=== PATIENT | male | born 1935 | race Caucasian/White ===

== ENCOUNTER 2016-12-01 06:30 | Day surgery (SDC) | payer MEDICARE, BC ==
[~2016-12-01 06:30] MED LIST: Dextrose 5%-0.45% NaCl 1,000 ML IV SCH; Midazolam 1 MG/ML 2 ML SDV ONE; Sodium Chloride 0.9% 10 ML Syringe FLUSH PRN; fentaNYL 100 MCG/2 ML SDV ONE
[2016-12-01] MEDS ORDERED: fentaNYL 100 MCG/2 ML SDV IV ONE ×3 (07:36→16:45)
[2016-12-01] MEDS ORDERED: Midazolam 1 MG/ML 2 ML SDV IV ONE ×4 (07:38→16:45)
--- NOTE | 2016-12-01 09:30 | OR ---
DATE: 12/01/2016 PROCEDURE: Total colonoscopy, NBI, and multiple cold snare polypectomies. INSTRUMENT USED: CF-H180AL Olympus video colonoscope. PREMEDICATIONS: Fentanyl 100 mcg intravenous, Versed 2.5 mg intravenous. Nasal O2 cannula. The procedure was done under pulse oximetry, BP recording, and stockroom helper. INDICATION: The patient with high-risk family history for colon cancer. Colonoscopic examination is done for detection of any polypoid lesions and removal, endoscopic hemostasis therapy if needed. DESCRIPTION OF PROCEDURE: Initial rectal exam was unremarkable. Rigid anoscopy was normal. The colonoscope was passed with ease. Scattered diverticula were noted in the distal colon. The scope was passed with ease up to the ileocecal area, photographs were taken of the cecum showing diminutive, benign-appearing polyp, NBI views were obtained, photographs were taken, cold snare polypectomy was done. No bleeding was noted from any of the visualized areas at the commencement of the examination. No stricture. No vascular ectasia. No large isolated ulcerations seen. No evidence of diffuse inflammatory bowel disease in the form of friability, contact bleeding, or ulcerations. Multiple diminutive polyps were noted, 2 in the proximal ascending colon, and 2 in the hepatic flexure area, cold snare polypectomies were done, the tissues were retrieved and sent for histopathology. Probing the proximal sides of flexures folds and removal of the fecal material, the scope was withdrawn. No bleeding was noted from any of the visualized areas at the completion of examination. IMPRESSION: 1. Diverticulosis. 2. Multiple diminutive polyps. The patient tolerated the procedure well. [facility] /[id number]
[2016-12-01 10:47] VITALS: BP 140/60
== END 2016-12-01 10:15 | disposition home or self-care (01) ==
LOC: DL.ENDO 06:30
PROVIDERS: ATTEND Internal Medicine Gastroenterology
DX: Z12.11 Encounter for screening for malignant neoplasm of colon (principal); D12.0 Benign neoplasm of cecum; D12.3 Benign neoplasm of transverse colon; K57.30 Diverticulosis of large intestine without perforation or abscess without bleeding; I10 Essential (primary) hypertension; E78.00 Pure hypercholesterolemia, unspecified; J44.9 Chronic obstructive pulmonary disease, unspecified; Z88.0 Allergy status to penicillin; Z88.8 Allergy status to other drugs, medicaments and biological substances; Z95.5 Presence of coronary angioplasty implant and graft; Z98.890 Other specified postprocedural states; Z90.49 Acquired absence of other specified parts of digestive tract; Z87.891 Personal history of nicotine dependence
CPT/HCPCS: 45385; J2250; J3010; J7042; 88305

== ENCOUNTER 2019-06-04 15:30 | Emergency (ER) | payer BC, MEDICARE ==
--- NOTE | 2019-06-04 16:24 | EDM.PDOC ---
ED HPI GENERAL MEDICAL PROBLEM - General Chief Complaint: General Stated Complaint: DIZZY Time Seen by Provider: 06/04/19 16:54 Source of Information: Reports: Patient, RN, RN Notes Reviewed History Limitations: Reports: No Limitations - History of Present Illness INITIAL COMMENTS - FREE TEXT/NARRATIVE: Patient is an 83-year-old male who presents to ER with complaints of dizziness. Patient reports that he woke up this morning feeling dizzy as if he was going to fall head forward. He reports dizziness resolved on its own. About 3 hours ago, the patient reports getting up from the chair to go get coffee and he felt dizzy with the room spinning so his brought him in. He denies any head injury, trauma or fall. He reports dizziness if he gets out of a sitting position to a standing position faster. He denies any nausea/vomiting, abdominal pain, diarrhea, constipation, earache, shortness of breath, chest pain , and palpitations. He denies any history of diabetes. Onset: Today Quality: Reports: Ache Severity: Mild Improves with: Reports: None Worsens with: Reports: None Associated Symptoms: Reports: No Other Symptoms - Related Data Allergies Allergy/AdvReac Type Severity Reaction Status Date / Time atorvastatin calcium Allergy Rash Verified 06/04/19 15:55 [From Lipitor] Penicillins Allergy Rash Verified 06/04/19 15:55 Home Meds: Home Meds Aspirin [Mitchell Chewable Aspirin] 81 mg PO DAILY 04/21/14 [History] Cholecalciferol (Vitamin D3) [Vitamin D-3] 2,000 units PO DAILY 04/21/14 [ History] Metoprolol Succinate 50 mg PO BEDTIME 04/21/14 [History] Simvastatin 40 mg PO BEDTIME 04/21/14 [History] Lisinopril 1 tab PO DAILY 11/30/16 [History] Lutein/Minerals/Vit A,C & E [Ocuvite] 1 tab PO DAILY 12/01/16 [History] Past Medical History HEENT History: Reports: Macular Degeneration Cardiovascular History: Reports: Angina, Arrhythmia, CAD, High Cholesterol, Hypertension, SC, Other (See Below) Other Cardiovascular History: 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 HX OF TUBULAR ADENOMA Genitourinary History: Reports: None Musculoskeletal History: Reports: Fracture, Other (See Below) Other Musculoskeletal History: HX OF FRACTURE CALCANEUS-CLOSED. HX OF BURSITIS , RIGHT HIP TENDONITIS RT THIGH MUSCLE Neurological History: Reports: None Psychiatric History: Reports: None Endocrine/Metabolic History: Reports: None Hematologic History: Reports: None Immunologic History: Reports: None Oncologic (Cancer) History: Reports: None Dermatologic History: Reports: None - Infectious Disease History Infectious Disease History: Reports: None, Measles - Past Surgical History Head Surgeries/Procedures: Reports: None HEENT Surgical History: Reports: Cataract Surgery, Other (See Below) Other HEENT Surgeries/Procedures: FORIEGN BODY REMOVED RIGHT EYE. CATARACT REMOVAL WITH LENS PLACEMENT LEFT EYE Cardiovascular Surgical History: Reports: Coronary Artery Stent, Other (See Below) Other Cardiovascular Surgeries/Procedures: CORONARY ANGIOPLASTY Respiratory Surgical History: Reports: None GI Surgical History: Reports: Appendectomy, Colonoscopy, Polypectomy, Other ( See Below) Other GI Surgeries/Procedures: HX OF THROMBOSED EXTERNAL HEMORRHOIDS, I & D OF HEMORRHOIDS Male Surgical History: Reports: None Endocrine Surgical History: Reports: None Neurological Surgical History: Reports: None Musculoskeletal Surgical History: Reports: None Oncologic Surgical History: Reports: None Dermatological Surgical History: Reports: None Social & Family History - Tobacco Use Smoking Status *Q: Former Smoker Used Tobacco, but Quit: No Month/Year Tobacco Last Used: 2011 - Caffeine Use Caffeine Use: Reports: Coffee Other Caffeine Use: AVERAGE OF 12 CUPS DAILY - Recreational Drug Use Recreational Drug Use: No - Living Situation & Occupation Living situation: Reports: Occupation: Retired ED ROS GENERAL - Review of Systems Review Of Systems: Comprehensive ROS is negative, except as noted in HPI. ED EXAM, GENERAL - Physical Exam Exam: See Below Exam Limited By: No Limitations General Appearance: Alert, WD/WN, No Apparent Distress Eye Exam: Bilateral Eye: EOMI, Normal Inspection, PERRL Ears: Normal External Exam, Normal Canal, Hearing Grossly Normal, Normal TMs Nose: Normal Inspection, Normal Mucosa, No Blood Throat/Mouth: Normal Inspection, Normal Lips, Normal Teeth, Normal Gums, Normal Oropharynx, Normal Voice, No Airway Compromise Head: Atraumatic, Normocephalic Neck: Normal Inspection, Supple, Non-Tender, Full Range of Motion Respiratory/Chest: No Respiratory Distress, Lungs Clear, Normal Breath Sounds, No Accessory Muscle Use, Chest Non-Tender Cardiovascular: Normal Peripheral Pulses, No Edema, No Gallop, No JVD, No Murmur , No Rub, Bradycardia GI/Abdominal: Normal Bowel Sounds, Soft, Non-Tender, No Organomegaly, No Distention, No Abnormal Bruit, No Mass (Male) Exam: Deferred Rectal (Males) Exam: Deferred Back Exam: Normal Inspection, Full Range of Motion, NT Extremities: Normal Inspection, Normal Range of Motion, Non-Tender, Normal Capillary Refill, No Pedal Edema Neurological: Alert, Oriented, CN II-XII Intact, Normal Cognition, Normal Gait, Normal Reflexes, No Motor/Sensory Deficits Psychiatric: Normal Affect, Normal Mood Skin Exam: Warm, Dry, Intact, Normal Color, No Rash Lymphatic: No Adenopathy EKG INTERPRETATION EKG Date: 06/04/19 Time: 16:16 Rhythm: Other (60) Rate (Beats/Min): 60 [place]: Normal P-Wave: Present QRS: LBBB ST-T: Normal QT: Normal Course - Vital Signs Last Recorded V/S: Last Vital Signs Temp 97.7 F 06/04/19 15:46 Pulse 57 L 06/04/19 17:44 Resp 18 06/04/19 15:46 BP 175/59 H 06/04/19 17:44 Pulse Ox 94 L 06/04/19 17:44 Orthostatic Blood Pressure [ 148/65 Standing] Orthostatic Blood Pressure [ 158/64 Supine] - Orders/Labs/Meds Orders: Active Orders 24 hr Category Date Time Status Orthostatic Vital Signs [RC] ASDIRECTED Care 06/04/19 18:43 Active Labs: Laboratory Tests 06/04/19 06/04/19 06/04/19 Range/Units 16:07 16:07 17:03 WBC 7.1 (5.0-10.0) 10^3/uL RBC 4.66 (4.6-6.2) 10^6/uL Hgb 14.9 (14.0-18.0) g/dL Hct 44.5 (40.0-54.0) % MCV 95.5 (80-100) fL MCH 32.0 (27.0-34.0) pg MCHC 33.5 (33.0-35.0) g/dL Plt Count 277 (150-450) 10^3/uL Neut % (Auto) 57.3 (42.2-75.2) % Lymph % (Auto) 27.3 (20.5-50.1) % [place] % (Auto) 12.7 H (2-8) % Eos % (Auto) 2.4 (1.0-3.0) % Baso % (Auto) 0.3 (0.0-1.0) % Sodium 138 (135-145) mmol/L Potassium 3.7 (3.6-5.0) mmol/L Chloride 105 (101-111) mmol/L Carbon Dioxide 26.0 (21.0-31.0) mmol/L Anion Gap 10.7 BUN 12 (7-18) mg/dL Creatinine 0.9 (0.6-1.3) mg/dL Est Cr Clr Drug Dosing 62.28 mL/min Estimated GFR (MDRD) > 60 BUN/Creatinine Ratio 13.33 Glucose 105 (74-105) mg/dL Calcium 9.3 (8.4-10.2) mg/dl Total Bilirubin 0.8 (0.2-1.0) mg/dL AST 22 (10-42) IU/L ALT 20 (10-60) IU/L Alkaline Phosphatase 50 (42-121) IU/L Total Protein 6.8 (6.7-8.2) g/dl Albumin 4.0 (3.2-5.5) g/dl Globulin 2.8 Albumin/Globulin Ratio 1.43 Urine Color Yellow (YELLOW) Urine Appearance Clear (CLEAR) Urine pH 7.5 (5.0-9.0) Ur Specific [place] 1.015 (1.005-1.030) Urine Protein Negative (NEGATIVE) Urine Glucose (UA) Negative (NEGATIVE) Urine Ketones Negative (NEGATIVE) Urine Occult Blood Negative (NEGATIVE) Urine Nitrite Negative (NEGATIVE) Urine Bilirubin Negative (NEGATIVE) Urine Urobilinogen 0.2 (0.2-1.0) mg/dL Ur Leukocyte Esterase Negative (NEGATIVE) Meds: Medications Discontinued Medications Generic Name Dose Route Start Last Admin Trade Name Freq PRN Reason Stop Dose Admin Iopamidol 100 ml 06/04/19 16:58 06/04/19 18:56 Isovue-300 (61%) IVPUSH 06/04/19 16:59 Not Given ONETIME ONE - Re-Assessments/Exams Free Text/Narrative Re-Assessment/Exam: 06/04/19 19:08 Reviewed labs results with patient. Brian-Hallpike and Cely maneuver performed by Dr. Linton with nystagmus noted on the right. Patient is also symptomatic with movement. HR in the high 50's to 60's. Metoprolol held for 2 days. Follow up in clinic in 2 days. Patient verbalized understanding. Departure - Departure Time of Disposition: 19:05 Disposition: Home, Self-Care 01 Condition: Good Clinical Impression: Dizziness, Bradycardia - Discharge Information Instructions: Dizziness, [id number] Referrals: Jennifer Latham NP [Primary Care Provider] - Forms: ED Department Discharge Additional Instructions: Hold Metoprolol for 2 days. Follow up in the clinic on 06/06/19. Push fluids. Rest. Sepsis Event Note - Evaluation Sepsis Screening Result: No Definite Risk - Focused Exam Date Exam was Performed: 06/05/19 Time Exam was Performed: 08:47 - My Orders Last 24 Hours: My Active Orders 06/04/19 18:43 Orthostatic Vital Signs [RC] ASDIRECTED - Assessment/Plan Last 24 Hours: My Active Orders 06/04/19 18:43 Orthostatic Vital Signs [RC] ASDIRECTED
[2019-06-04] MEDS ORDERED: Iopamidol 612 MG/ML 100 ML Bottle IVPUSH ONE (16:58)
[2019-06-04 17:33] LABS: ANION GAP 10.7; CHLORIDE,CL 105 mmol/L (101-111); SODIUM,NA 138 mmol/L (135-145)
[2019-06-04 17:45] VITALS: BP 175/59; PULSE 57
== END 2019-06-04 19:29 | disposition home or self-care (01) ==
LOC: DL.ED 15:30
DX: R00.1 Bradycardia, unspecified (principal); R42 Dizziness and giddiness; I25.2 Old myocardial infarction; I25.10 Atherosclerotic heart disease of native coronary artery without angina pectoris; E78.00 Pure hypercholesterolemia, unspecified; J44.9 Chronic obstructive pulmonary disease, unspecified; Z88.8 Allergy status to other drugs, medicaments and biological substances; Z88.0 Allergy status to penicillin; Z79.82 Long term (current) use of aspirin; Z79.899 Other long term (current) drug therapy; Z87.891 Personal history of nicotine dependence
CPT/HCPCS: 36415; 80053; 81003; 85025; 93010; 99284

== ENCOUNTER 2019-11-30 01:36 | Inpatient (IN) | payer MEDICARE, OTHER ==
--- NOTE | 2019-11-30 02:42 | EDM.PDOC ---
<Jennifer Clark R - Last Filed: 11/30/19 05:00> ED HPI GENERAL MEDICAL PROBLEM - General Chief Complaint: Respiratory Problem Stated Complaint: SOB Time Seen by Provider: 11/30/19 02:10 Source of Information: Reports: Patient History Limitations: Reports: No Limitations - History of Present Illness INITIAL COMMENTS - FREE TEXT/NARRATIVE: Patient is a 84 year old male with a PMH significant for COPD, CAD s/p stent placement, alcohol abuse who presents with complaints of SOB. He was seen in clinic 3 days ago and was diagnosed with Bronchitis and was prescribed Azithromycin and Prednisone. He was also tested for COVID-19 which came back positive 11/29/2019. He states he feels more short of breath today. Denies fever, chills, nausea, vomiting, chest pain, headaches, cough, congestion, diarrhea. He states he has decreased appetite but he's been drinking plenty of fluids as recommended. Onset Date: 11/27/19 Duration: Getting Worse Severity: Mild Associated Symptoms: Reports: Loss of Appetite, Malaise, Shortness of Breath. 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 Cough medicine) - Related Data Allergies Allergy/AdvReac Type Severity Reaction Status Date / Time atorvastatin calcium Allergy Rash Verified 06/04/19 15:55 [From Lipitor] Penicillins Allergy Rash Verified 06/04/19 15:55 Home Meds: Home Meds Aspirin [Mitchell Chewable Aspirin] 81 mg PO DAILY 04/21/14 [History] Cholecalciferol (Vitamin D3) [Vitamin D-3] 2,000 units PO DAILY 04/21/14 [History] Metoprolol Succinate 50 mg PO BEDTIME 04/21/14 [History] Simvastatin 40 mg PO BEDTIME 04/21/14 [History] Lisinopril 1 tab PO DAILY 11/30/16 [History] Lutein/Minerals/Vit A,C & E [Ocuvite] 1 tab PO DAILY 12/01/16 [History] Past Medical History HEENT History: Reports: Hard of Hearing, Macular Degeneration Cardiovascular History: Reports: Angina, Arrhythmia, CAD, High Cholesterol, Hypertension, [place], Other (See Below) Other Cardiovascular History: 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 HX OF TUBULAR ADENOMA Genitourinary History: Reports: None Musculoskeletal History: Reports: Fracture, Other (See Below) Other Musculoskeletal History: HX OF FRACTURE CALCANEUS-CLOSED. HX OF BURSITIS, RIGHT HIP TENDONITIS RT THIGH MUSCLE Neurological History: Reports: None Psychiatric History: Reports: None Endocrine/Metabolic History: Reports: None Hematologic History: Reports: None Immunologic History: Reports: None Oncologic (Cancer) History: Reports: None Dermatologic History: Reports: None - Infectious Disease History Infectious Disease History: Reports: None, Measles - Past Surgical History Head Surgeries/Procedures: Reports: None HEENT Surgical History: Reports: Cataract Surgery, Other (See Below) Other HEENT Surgeries/Procedures: FORIEGN BODY REMOVED RIGHT EYE. CATARACT REMOVAL WITH LENS PLACEMENT LEFT EYE Cardiovascular Surgical History: Reports: Coronary Artery Stent, Other (See Below) Other Cardiovascular Surgeries/Procedures: CORONARY ANGIOPLASTY Respiratory Surgical History: Reports: None GI Surgical History: Reports: Appendectomy, Colonoscopy, Polypectomy, Other (See Below) Other GI Surgeries/Procedures: HX OF THROMBOSED EXTERNAL HEMORRHOIDS, I & D OF HEMORRHOIDS Male Surgical History: Reports: None Endocrine Surgical History: Reports: None Neurological Surgical History: Reports: None Musculoskeletal Surgical History: Reports: None Oncologic Surgical History: Reports: None Dermatological Surgical History: Reports: None Social & Family History - Tobacco Use Smoking Status *Q: Former Smoker Used Tobacco, but Quit: No Second Hand Smoke Exposure: No - Caffeine Use Caffeine Use: Reports: Coffee Other Caffeine Use: AVERAGE OF 12 CUPS DAILY - Recreational Drug Use Recreational Drug Use: No - Living Situation & Occupation Living situation: Reports: Occupation: Retired ED ROS GENERAL - Review of Systems Review Of Systems: Comprehensive ROS is negative, except as noted in HPI. ED EXAM, GENERAL - Physical Exam Exam Limited By: No Limitations General Appearance: Alert, WD/WN, No Apparent Distress Ears: Normal External Exam, Normal Canal, Hearing Grossly Normal, Normal TMs Ear Exam: Bilateral Ear: Auricle Normal, Canal Normal, TM normal Nose: Normal Inspection, Normal Mucosa, No Blood Throat/Mouth: Normal Inspection, Normal Lips, Normal Teeth, Normal Gums, Normal Oropharynx, Normal Voice, No Airway Compromise Head: Atraumatic, Normocephalic Neck: Normal Inspection, Supple, Non-Tender, Full Range of Motion Respiratory/Chest: No Respiratory Distress, No Accessory Muscle Use, Decreased Breath Sounds, Wheezing (mild expiratory wheezes) Cardiovascular: Normal Peripheral Pulses, Regular Rate, Rhythm, No Edema, No Gallop, No JVD, No Murmur, No Rub GI/Abdominal: Normal Bowel Sounds, Soft, Non-Tender, No Organomegaly, No Distention, No Abnormal Bruit, No Mass (Male) Exam: Deferred Rectal (Males) Exam: Deferred Back Exam: Normal Inspection, Full Range of Motion, NT Extremities: Normal Inspection, Normal Range of Motion, Non-Tender, Normal Capillary Refill, No Pedal Edema Neurological: Alert, Oriented, CN II-XII Intact, Normal Cognition, Normal Gait, Normal Reflexes, No Motor/Sensory Deficits Psychiatric: Normal Affect, Normal Mood Skin Exam: Warm, Dry, Intact, Normal Color, No Rash Lymphatic: No Adenopathy Departure - Departure Time of Disposition: 05:00 Disposition: Admitted As Inpatient 68 Condition: Fair Clinical Impression: Hypoxemia, COPD with exacerbation, COVID-19 - Discharge Information *PRESCRIPTION DRUG MONITORING PROGRAM REVIEWED*: Not Applicable *COPY OF PRESCRIPTION DRUG MONITORING REPORT IN PATIENT JASSON: Not Applicable Forms: ED Department Discharge Sepsis Event Note (ED) - Evaluation Sepsis Screening Result: No Definite Risk <Bree Soria - Last Filed: 11/30/19 05:05> ED EXAM, GENERAL - Physical Exam Exam: See Below Course - Vital Signs Last Recorded V/S: Last Vital Signs Temp 98.0 F 11/30/19 01:50 Pulse 69 11/30/19 01:50 Resp 20 11/30/19 01:50 BP 151/60 H 11/30/19 01:50 Pulse Ox 92 L 11/30/19 01:50 - Orders/Labs/Meds Orders: Active Orders 24 hr Category Date Time Status Admission Diagnosis [ADT] Stat ADT 11/30/19 04:59 Ordered Admission Status [Patient Status] [ADT] Routine ADT 11/30/19 04:59 Active EKG Documentation Completion [RC] STAT Care 11/30/19 01:56 Active D-DIMER [REF] Stat Lab 11/30/19 02:26 Received Labs: Laboratory Tests 11/30/19 11/30/19 11/30/19 Range/Units 02:00 02:00 02:00 WBC 7.4 (5.0-10.0) 10^3/uL RBC 4.79 (4.6-6.2) 10^6/uL Hgb 15.2 (14.0-18.0) g/dL Hct 44.9 (40.0-54.0) % MCV 93.7 (80-100) fL MCH 31.7 (27.0-34.0) pg MCHC 33.9 (33.0-35.0) g/dL Plt Count 129 L D (150-450) 10^3/uL Neut % (Auto) 73.9 (42.2-75.2) % Lymph % (Auto) 17.3 L (20.5-50.1) % [place] % (Auto) 8.7 H (2-8) % Eos % (Auto) 0.0 L (1.0-3.0) % Baso % (Auto) 0.1 (0.0-1.0) % Sodium 140 (136-145) mmol/L Potassium 3.9 (3.5-5.1) mmol/L Chloride 104 (98-107) mmol/L Carbon Dioxide 29 (21-32) mmol/L Anion Gap 10.9 (7-13) mEq/L BUN 25 H (7-18) mg/dL Creatinine 1.10 (0.70-1.30) mg/dL Est Cr Clr Drug Dosing 44.51 mL/min Estimated GFR (MDRD) > 60 BUN/Creatinine Ratio 22.7 (No establ ref range) Glucose 125 H (74-99) mg/dL Lactic Acid 1.7 (0.4-2.0) mmol/L Calcium 8.1 L (8.5-10.1) mg/dL Total Bilirubin 0.5 (0.2-1.0) mg/dL AST 38 H (15-37) U/L ALT 31 (16-63) U/L Alkaline Phosphatase 46 (46-116) U/L Lactate Dehydrogenase 325 H (85-227) U/L Troponin I < 0.017 (0.000-0.056) ng/mL C-Reactive Protein 1.9 H (0.0-0.9) mg/dL B-Natriuretic Peptide 88 (0-100) pg/ml Total Protein 6.3 L (6.4-8.2) g/dL Albumin 2.6 L (3.4-5.0) g/dL Globulin 3.7 Albumin/Globulin Ratio 0.70 Ethyl Alcohol (0) mg/dL 11/30/19 Range/Units 02:26 WBC (5.0-10.0) 10^3/uL RBC (4.6-6.2) 10^6/uL Hgb (14.0-18.0) g/dL Hct (40.0-54.0) % MCV (80-100) fL MCH (27.0-34.0) pg MCHC (33.0-35.0) g/dL Plt Count (150-450) 10^3/uL Neut % (Auto) (42.2-75.2) % Lymph % (Auto) (20.5-50.1) % [place] % (Auto) (2-8) % Eos % (Auto) (1.0-3.0) % Baso % (Auto) (0.0-1.0) % Sodium (136-145) mmol/L Potassium (3.5-5.1) mmol/L Chloride (98-107) mmol/L Carbon Dioxide (21-32) mmol/L Anion Gap (7-13) mEq/L BUN (7-18) mg/dL Creatinine (0.70-1.30) mg/dL Est Cr Clr Drug Dosing mL/min Estimated GFR (MDRD) BUN/Creatinine Ratio (No establ ref range) Glucose (74-99) mg/dL Lactic Acid (0.4-2.0) mmol/L Calcium (8.5-10.1) mg/dL Total Bilirubin (0.2-1.0) mg/dL AST (15-37) U/L ALT (16-63) U/L Alkaline Phosphatase (46-116) U/L Lactate Dehydrogenase (85-227) U/L Troponin I (0.000-0.056) ng/mL C-Reactive Protein (0.0-0.9) mg/dL B-Natriuretic Peptide (0-100) pg/ml Total Protein (6.4-8.2) g/dL Albumin (3.4-5.0) g/dL Globulin Albumin/Globulin Ratio Ethyl Alcohol < 3 (0) mg/dL - Radiology Interpretation Free Text/Narrative:: Chest CT wo contrast: PROCEDURE INFORMATION: Exam: CT Chest Without Contrast Exam date and time: 11/30/2019 3:29 AM Age: 84 years old Clinical indication: Other: Covid +, SOB, sats 88% ra TECHNIQUE: Imaging protocol: Computed tomography of the chest without contrast. Radiation optimization: All CT scans at this facility use at least one of these dose optimization techniques: automated exposure control; mA and/or kV adjustment per patient size (includes targeted exams where dose is matched to clinical indication); or iterative reconstruction. COMPARISON: CR Chest 1V Frontal 10/27/2015 9:51 PM FINDINGS: Limitations: Evaluation of the vasculature, krista, and mediastinal structures is limited due to the lack of IV contrast. Lungs: There are moderate centrilobular emphysematous changes in the lungs most severely in the upper lobes. There are ground-glass opacities throughout both lungs, most pronounced in the lingula, lateral inferior right upper lobe and the right lower. This may represent an atypical pneumonia or pulmonary fibrosis. Juxtapleural lines are noted in the right lower lobe probably representing pulmonary fibrosis. There is 2 x 1 cm nodular focus in the inferior right middle lobe contiguous with the pleura which may represent a scar. Cannot exclude a true pulmonary nodule. There is a 6 x 4 mm posterior right upper lobe pulmonary nodule (axial image 20). The trachea and central bronchi are unremarkable. Pleura: No pleural effusion. No pneumothorax. Heart: Heart size is normal. There are heavy coronary artery calcifications. There is no pericardial effusion. Krista and mediastinum: There is no obvious mass or adenopathy. There is a small hiatal hernia. Thoracic aorta/vascular: No thoracic aortic aneurysm. Imaged upper abdomen: There are 3 hypodense lesions in the right lobe of the liver, largest measuring 3.2 x 2.4 cm. These are difficult to characterize on a noncontrast study but are suspicious for cysts. Recommend nonemergent ultrasound correlation. There is severe left hydronephrosis, less likely a large parapelvic cyst. There is associated cortical thinning. There is also an exophytic probable cyst arising from the anteromedial left upper pole measuring 3.2 x 2.7 cm. There coarse calcifications in the left renal hilar region which may be atherosclerotic arterial in nature. Musculoskeletal system: There is an old mild compression fracture of the superior endplate T3. There are degenerative changes of the cervical and thoracic spine. Chest/body wall soft tissues: Unremarkable Thyroid: Unremarkable IMPRESSION: 1. Ground-glass opacities throughout both lungs as discussed above which may represent an atypical pneumonia or pulmonary fibrosis. 2. Moderate centrilobular emphysema. 3. 2 x 1 cm scar versus nodule in the anterior inferior right middle lobe. 4. 6 x 4 mm posterior right upper lobe pulmonary nodule. 5. For both low risk and high risk patients, consider CT at 3 months, PET/CT or biopsy. (Toro et al., Fleischner Society, 2017) 6. Imaging features can be seen with COVID-19 pneumonia, though are nonspecific and can occur with a variety of infectious and noninfectious processes. REFERENCES: Francisco Javier Canales et al., Radiological Society of [place] Expert Consensus Statement on Reporting Chest CT Findings Related to COVID-19. Endorsed by the Society of Thoracic Ra diology, the [employer], and RSNA. Published July 12, 2019. Thank you for allowing us to participate in the care of your patient. Dictated and Authenticated by: Logan Perdomo MD 11/30/2019 4:51 AM Central Time ([place] & [place]) See rad report - Re-Assessments/Exams Free Text/Narrative Re-Assessment/Exam: 11/30/19 05:04 I saw and evaluated the patient. Discussed with resident and agree with residents findings and plan as documented in the residents note. 11/30/19 05:04 Discussed patient case with Dr. John who agreed to accept the patient for inpatient admission. Sepsis Event Note (ED) - Focused Exam Vital Signs: Vital Signs Temp Pulse Resp BP Pulse Ox 11/30/19 01:50 98.0 F 69 20 151/60 H 92 L - My Orders Last 24 Hours: My Active Orders 11/30/19 01:56 EKG Documentation Completion [RC] STAT 11/30/19 02:26 D-DIMER [REF] Stat 11/30/19 04:59 Admission Diagnosis [ADT] Stat Admission Status [Patient Status] [ADT] Routine - Assessment/Plan Last 24 Hours: My Active Orders 11/30/19 01:56 EKG Documentation Completion [RC] STAT 11/30/19 02:26 D-DIMER [REF] Stat 11/30/19 04:59 Admission Diagnosis [ADT] Stat Admission Status [Patient Status] [ADT] Routine
[2019-11-30 02:55] LABS: ANION GAP 10.9 mEq/L (7-13); CHLORIDE,CL 104 mmol/L (98-107); SODIUM,NA 140 mmol/L (136-145)
--- NOTE | 2019-11-30 04:52 | CT ---
PROCEDURE INFORMATION: Exam: CT Chest Without Contrast Exam date and time: 11/30/2019 3:29 AM Age: 84 years old Clinical indication: Other: Covid +, SOB, sats 88% ra TECHNIQUE: Imaging protocol: Computed tomography of the chest without contrast. Radiation optimization: All CT scans at this facility use at least one of these dose optimization techniques: automated exposure control; mA and/or kV adjustment per patient size (includes targeted exams where dose is matched to clinical indication); or iterative reconstruction. COMPARISON: CR Chest 1V Frontal 10/27/2015 9:51 PM FINDINGS: Limitations: Evaluation of the vasculature, krista, and mediastinal structures is limited due to the lack of IV contrast. Lungs: There are moderate centrilobular emphysematous changes in the lungs most severely in the upper lobes. There are ground-glass opacities throughout both lungs, most pronounced in the lingula, lateral inferior right upper lobe and the right lower. This may represent an atypical pneumonia or pulmonary fibrosis. Juxtapleural lines are noted in the right lower lobe probably representing pulmonary fibrosis. There is 2 x 1 cm nodular focus in the inferior right middle lobe contiguous with the pleura which may represent a scar. Cannot exclude a true pulmonary nodule. There is a 6 x 4 mm posterior right upper lobe pulmonary nodule (axial image 20). The trachea and central bronchi are unremarkable. Pleura: No pleural effusion. No pneumothorax. Heart: Heart size is normal. There are heavy coronary artery calcifications. There is no pericardial effusion. Krista and mediastinum: There is no obvious mass or adenopathy. There is a small hiatal hernia. Thoracic aorta/vascular: No thoracic aortic aneurysm. Imaged upper abdomen: There are 3 hypodense lesions in the right lobe of the liver, largest measuring 3.2 x 2.4 cm. These are difficult to characterize on a noncontrast study but are suspicious for cysts. Recommend nonemergent ultrasound correlation. There is severe left hydronephrosis, less likely a large parapelvic cyst. There is associated cortical thinning. There is also an exophytic probable cyst arising from the anteromedial left upper pole measuring 3.2 x 2.7 cm. There coarse calcifications in the left renal hilar region which may be atherosclerotic arterial in nature. Musculoskeletal system: There is an old mild compression fracture of the superior endplate T3. There are degenerative changes of the cervical and thoracic spine. Chest/body wall soft tissues: Unremarkable Thyroid: Unremarkable IMPRESSION: 1. Ground-glass opacities throughout both lungs as discussed above which may represent an atypical pneumonia or pulmonary fibrosis. 2. Moderate centrilobular emphysema. 3. 2 x 1 cm scar versus nodule in the anterior inferior right middle lobe. 4. 6 x 4 mm posterior right upper lobe pulmonary nodule. 5. For both low risk and high risk patients, consider CT at 3 months, PET/CT or biopsy. (Toro et al., Fleischner Society, 2017) 6. Imaging features can be seen with COVID-19 pneumonia, though are nonspecific and can occur with a variety of infectious and noninfectious processes. REFERENCES: Francisco Javier Canales et al., Radiological Society of [place] Expert Consensus Statement on Reporting Chest CT Findings Related to COVID-19. Endorsed by the Society of Thoracic Radiology, the [employer] [employer], and RSNA. Published July 12, 2019.
[2019-11-30] MEDS ORDERED: Acetaminophen 325 MG Tab PO PRN (07:55)
[2019-11-30] MEDS ORDERED: Docusate Sodium 100 MG Cap PO PRN (07:55)
[2019-11-30] MEDS ORDERED: Ondansetron 4 MG Tab.DIS PO PRN (07:55)
[2019-11-30] MEDS ORDERED: Ibuprofen 400 MG Tab PO PRN (07:55)
[2019-11-30] MEDS ORDERED: Ondansetron 4 MG/2 ML SDV IVPUSH PRN (07:55)
[2019-11-30] MEDS ORDERED: Sodium Chloride 0.9% 10 ML Syringe FLUSH PRN (07:55)
[2019-11-30] MEDS: Lutein/Minerals/Vit A,C & E Tab PO SCH (09:45)
[2019-11-30] MEDS: Dexamethasone 4 MG Tab PO SCH (09:45)
[2019-11-30] MEDS: Aspirin 81 MG Tab.Chew PO SCH (09:45)
[2019-11-30] MEDS: Formoterol/Mometasone 200-5 MCG 8.8 GM Inhaler IH SCH ×2 (09:46→17:42)
[2019-11-30] MEDS: Enoxaparin 40 MG/0.4 ML Syringe SUBCUT SCH ×2 (09:46→20:10)
[2019-11-30] MEDS: Lisinopril 5 MG Tab PO SCH (09:46)
--- NOTE | 2019-11-30 10:13 | PCM.HP ---
H&P History of Present Illness - General Date of Service: 11/30/19 Admit Problem/Dx: Admission Diagnosis/Problem Admission Diagnosis/Problem COPD with acute lower respiratory infection Source of Information: Patient - History of Present Illness Initial Comments - Free Text/Narative: 84-year-old gentleman with a history of COPD, hypertension, coronary artery disease. He was getting increasingly short of breath and presented to the clinic on 26 November. Was diagnosed with acute COPD exacerbation. Was given azithromycin and prednisone. Covid test was obtained and sent out. The patient was notified on the that it was positive. 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 Shortness of breath is moderate, present for a few days, worse with activity, no associated fever or chills, no chest pain, no leg swelling Denies diarrhea, abdominal pain, chest pain On presentation to the emergency room room air oxygen saturation was 88%. - Related Data Allergies/Adverse Reactions: Allergies Allergy/AdvReac Type Severity Reaction Status Date / Time atorvastatin calcium Allergy Rash Verified 11/30/19 05:19 [From Lipitor] Penicillins Allergy Rash Verified 11/30/19 05:19 Home Medications: Home Meds Aspirin [Mitchell Chewable Aspirin] 81 mg PO DAILY 04/21/14 [History] Cholecalciferol (Vitamin D3) [Vitamin D-3] 2,000 units PO DAILY 04/21/14 [History] Metoprolol Succinate 50 mg PO BEDTIME 04/21/14 [History] Simvastatin 40 mg PO BEDTIME 04/21/14 [History] Lisinopril 1 tab PO DAILY 11/30/16 [History] Lutein/Minerals/Vit A,C & E [Ocuvite] 1 tab PO DAILY 12/01/16 [History] Past Medical History HEENT History: Reports: Hard of Hearing, Macular Degeneration Cardiovascular History: Reports: Angina, Arrhythmia, CAD, High Cholesterol, Hypertension, MD, Other (See Below) Other Cardiovascular History: 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 HX OF TUBULAR ADENOMA Genitourinary History: Reports: None Musculoskeletal History: Reports: Fracture, Other (See Below) Other Musculoskeletal History: HX OF FRACTURE CALCANEUS-CLOSED. HX OF BURSITIS, RIGHT HIP TENDONITIS RT THIGH MUSCLE Neurological History: Reports: None Psychiatric History: Reports: None Endocrine/Metabolic History: Reports: None Hematologic History: Reports: None Immunologic History: Reports: None Oncologic (Cancer) History: Reports: None Dermatologic History: Reports: None - Infectious Disease History Infectious Disease History: Reports: None, Measles - Past Surgical History Head Surgeries/Procedures: Reports: None HEENT Surgical History: Reports: Cataract Surgery, Other (See Below) Other HEENT Surgeries/Procedures: FORIEGN BODY REMOVED RIGHT EYE. CATARACT REMOVAL WITH LENS PLACEMENT LEFT EYE Cardiovascular Surgical History: Reports: Coronary Artery Stent, Other (See Below) Other Cardiovascular Surgeries/Procedures: CORONARY ANGIOPLASTY Respiratory Surgical History: Reports: None GI Surgical History: Reports: Appendectomy, Colonoscopy, Polypectomy, Other (See Below) Other GI Surgeries/Procedures: HX OF THROMBOSED EXTERNAL HEMORRHOIDS, I & D OF HEMORRHOIDS Male Surgical History: Reports: None Endocrine Surgical History: Reports: None Neurological Surgical History: Reports: None Musculoskeletal Surgical History: Reports: None Oncologic Surgical History: Reports: None Dermatological Surgical History: Reports: None Social & Family History - Tobacco Use Smoking Status *Q: Former Smoker Years of Tobacco use: 60 Packs/Tins Daily: 1 Used Tobacco, but Quit: Yes Month/Year Tobacco Last Used: Second Hand Smoke Exposure: No - Caffeine Use Caffeine Use: Reports: None Other Caffeine Use: AVERAGE OF 12 CUPS DAILY - Recreational Drug Use Recreational Drug Use: No - Living Situation & Occupation Living situation: Reports: Occupation: Retired H&P Review of Systems - Review of Systems: Review Of Systems: See Below General: Reports: Malaise, Weakness. Denies: Fever Pulmonary: Reports: Shortness of Breath, Cough. Denies: Sputum, Hemoptysis Cardiovascular: Denies: Chest Pain, Edema Gastrointestinal: Denies: Abdominal Pain, Diarrhea Genitourinary: Denies: Dysuria Psychiatric: Denies: Confusion Neurological: Denies: Headache, Paresthesia, Tremors Exam - Exam Exam: See Below - Vital Signs Vital Signs: Last Vital Signs Temp 99 F 11/30/19 07:55 Pulse 80 11/30/19 07:55 Resp 18 11/30/19 07:55 BP 145/65 H 11/30/19 09:46 Pulse Ox 91 L 11/30/19 07:55 Weight: 140 lb 11.2 oz - Exam Quality Assessment: Supplemental Oxygen General: Alert, Oriented Neck: Supple Lungs: Normal Respiratory Effort, Decreased Breath Sounds, Rales (Right sided) Cardiovascular: Regular Rate, Regular Rhythm GI/Abdominal Exam: Normal Bowel Sounds, Soft, Non-Tender Extremities: No Pedal Edema - Patient Data Lab Results Last 24 hrs: Laboratory Results - last 24 hr 11/30/19 11/30/19 11/30/19 Range/Units 02:00 02:00 02:00 WBC 7.4 (5.0-10.0) 10^3/uL RBC 4.79 (4.6-6.2) 10^6/uL Hgb 15.2 (14.0-18.0) g/dL Hct 44.9 (40.0-54.0) % MCV 93.7 (80-100) fL MCH 31.7 (27.0-34.0) pg MCHC 33.9 (33.0-35.0) g/dL Plt Count 129 L D (150-450) 10^3/uL Neut % (Auto) 73.9 (42.2-75.2) % Lymph % (Auto) 17.3 L (20.5-50.1) % [place] % (Auto) 8.7 H (2-8) % Eos % (Auto) 0.0 L (1.0-3.0) % Baso % (Auto) 0.1 (0.0-1.0) % Sodium 140 (136-145) mmol/L Potassium 3.9 (3.5-5.1) mmol/L Chloride 104 (98-107) mmol/L Carbon Dioxide 29 (21-32) mmol/L Anion Gap 10.9 (7-13) mEq/L BUN 25 H (7-18) mg/dL Creatinine 1.10 (0.70-1.30) mg/dL Est Cr Clr Drug Dosing 44.51 mL/min Estimated GFR (MDRD) > 60 BUN/Creatinine Ratio 22.7 (No establ ref range) Glucose 125 H (74-99) mg/dL Lactic Acid 1.7 (0.4-2.0) mmol/L Calcium 8.1 L (8.5-10.1) mg/dL Total Bilirubin 0.5 (0.2-1.0) mg/dL AST 38 H (15-37) U/L ALT 31 (16-63) U/L Alkaline Phosphatase 46 (46-116) U/L Lactate Dehydrogenase 325 H (85-227) U/L Troponin I < 0.017 (0.000-0.056) ng/mL C-Reactive Protein 1.9 H (0.0-0.9) mg/dL B-Natriuretic Peptide 88 (0-100) pg/ml Total Protein 6.3 L (6.4-8.2) g/dL Albumin 2.6 L (3.4-5.0) g/dL Globulin 3.7 Albumin/Globulin Ratio 0.70 Ethyl Alcohol (0) mg/dL 11/30/19 Range/Units 02:26 WBC (5.0-10.0) 10^3/uL RBC (4.6-6.2) 10^6/uL Hgb (14.0-18.0) g/dL Hct (40.0-54.0) % MCV (80-100) fL MCH (27.0-34.0) pg MCHC (33.0-35.0) g/dL Plt Count (150-450) 10^3/uL Neut % (Auto) (42.2-75.2) % Lymph % (Auto) (20.5-50.1) % [place] % (Auto) (2-8) % Eos % (Auto) (1.0-3.0) % Baso % (Auto) (0.0-1.0) % Sodium (136-145) mmol/L Potassium (3.5-5.1) mmol/L Chloride (98-107) mmol/L Carbon Dioxide (21-32) mmol/L Anion Gap (7-13) mEq/L BUN (7-18) mg/dL Creatinine (0.70-1.30) mg/dL Est Cr Clr Drug Dosing mL/min Estimated GFR (MDRD) BUN/Creatinine Ratio (No establ ref range) Glucose (74-99) mg/dL Lactic Acid (0.4-2.0) mmol/L Calcium (8.5-10.1) mg/dL Total Bilirubin (0.2-1.0) mg/dL AST (15-37) U/L ALT (16-63) U/L Alkaline Phosphatase (46-116) U/L Lactate Dehydrogenase (85-227) U/L Troponin I (0.000-0.056) ng/mL C-Reactive Protein (0.0-0.9) mg/dL B-Natriuretic Peptide (0-100) pg/ml Total Protein (6.4-8.2) g/dL Albumin (3.4-5.0) g/dL Globulin Albumin/Globulin Ratio Ethyl Alcohol < 3 (0) mg/dL Result Diagrams: 11/30/19 02:00 11/30/19 02:00 Imaging Impressions Last 24 hrs: CT chest IMPRESSION: 1. Ground-glass opacities throughout both lungs as discussed above which may represent an atypical pneumonia or pulmonary fibrosis. 2. Moderate centrilobular emphysema. 3. 2 x 1 cm scar versus nodule in the anterior inferior right middle lobe. 4. 6 x 4 mm posterior right upper lobe pulmonary nodule. 5. For both low risk and high risk patients, consider CT at 3 months, PET/CT or biopsy. (Toro et al., Fleischner Society, 2017) 6. Imaging features can be seen with COVID-19 pneumonia, though are nonspecific and can occur with a variety of infectious and noninfectious processes. - Problem List (1) COVID-19 with pulmonary comorbidity SNOMED Code(s): 435474621, 079963922 ICD Code: U07.1 - COVID-19; J98.4 - OTHER DISORDERS OF LUNG Status: Acute Current Visit: Yes (2) Viral pneumonia SNOMED Code(s): 72307993 ICD Code: J12.9 - VIRAL PNEUMONIA, UNSPECIFIED Status: Acute Current Visit: Yes (3) COPD with exacerbation SNOMED Code(s): 088528100, 059446925 ICD Code: J44.1 - CHRONIC OBSTRUCTIVE PULMONARY DISEASE W (ACUTE) EXACERBATION Status: Acute Current Visit: No (4) COVID-19 SNOMED Code(s): 216033460 ICD Code: U07.1 - COVID-19 Status: Acute Current Visit: No (5) HTN (hypertension) SNOMED Code(s): 60144720 ICD Code: I10 - ESSENTIAL (PRIMARY) HYPERTENSION Status: Acute Current Visit: Yes Problem List Initiated/Reviewed/Updated: Yes Orders Last 24hrs: Active Orders 24 hr Category Date Time Status Admission Diagnosis [ADT] Stat ADT 11/30/19 04:59 Ordered Admission Status [Patient Status] [ADT] Routine ADT 11/30/19 04:59 Active Antiembolic Devices [RC] , Care 11/30/19 07:56 Active Notify Provider Consults [RC] ASDIRECTED Care 11/30/19 07:55 Active Oxygen Therapy [RC] .PRN Care 11/30/19 07:55 Active Peripheral IV Care [RC] , Care 11/30/19 07:56 Active RT Post Treatment Assessment [RC] Click to Edit Care 11/30/19 08:27 Active RT Pre-Treatment Assessment [RC] Click to Edit Care 11/30/19 08:27 Active Up With Assistance [RC] ASDIRECTED Care 11/30/19 07:55 Active VTE/DVT Education [RC] PER UNIT ROUTINE Care 11/30/19 07:55 Active Vital Signs [RC] Q4H Care 11/30/19 07:55 Active Consult to Physician [CONS] Routine Cons 11/30/19 07:54 Ordered Regular Diet [DIET] Diet 11/30/19 Lunch Active BASIC METABOLIC PANEL,BMP [CHEM] AM Lab 12/01/19 05:15 Ordered BASIC METABOLIC PANEL,BMP [CHEM] AM Lab 12/02/19 05:11 Ordered BASIC METABOLIC PANEL,BMP [CHEM] AM Lab 12/03/19 05:11 Ordered BASIC METABOLIC PANEL,BMP [CHEM] AM Lab 12/04/19 05:11 Ordered BASIC METABOLIC PANEL,BMP [CHEM] AM Lab 12/05/19 05:11 Ordered BASIC METABOLIC PANEL,BMP [CHEM] AM Lab 12/06/19 05:11 Ordered CBC WITH AUTO DIFF [HEME] AM Lab 12/01/19 05:15 Ordered CBC WITH AUTO DIFF [HEME] AM Lab 12/02/19 05:11 Ordered CBC WITH AUTO DIFF [HEME] AM Lab 12/03/19 05:11 Ordered CBC WITH AUTO DIFF [HEME] AM Lab 12/04/19 05:11 Ordered CBC WITH AUTO DIFF [HEME] AM Lab 12/05/19 05:11 Ordered CBC WITH AUTO DIFF [HEME] AM Lab 12/06/19 05:11 Ordered CRP [C-REACTIVE PROTEIN] [CHEM] AM Lab 12/01/19 05:11 Ordered D-DIMER [REF] Stat Lab 11/30/19 02:26 Received DD [D-DIMER QUANTITATIVE] [COAG] AM Lab 12/01/19 05:11 Ordered DD [D-DIMER QUANTITATIVE] [COAG] Routine Lab 11/30/19 09:55 Ordered HEPATIC FUNCTION PANEL,HFP [CHEM] AM Lab 12/01/19 05:11 Ordered HEPATIC FUNCTION PANEL,HFP [CHEM] AM Lab 12/02/19 05:11 Ordered HEPATIC FUNCTION PANEL,HFP [CHEM] AM Lab 12/03/19 05:11 Ordered HEPATIC FUNCTION PANEL,HFP [CHEM] AM Lab 12/04/19 05:11 Ordered HEPATIC FUNCTION PANEL,HFP [CHEM] AM Lab 12/05/19 05:11 Ordered MAGNESIUM [CHEM] AM Lab 12/01/19 05:11 Ordered PHOSPHORUS [CHEM] AM Lab 12/01/19 05:11 Ordered SEDIMENTATION RATE MANUAL [HEME] AM Lab 12/01/19 05:11 Ordered Acetaminophen [Tylenol] Med 11/30/19 07:55 Active 650 mg PO Q4H PRN Albuterol [Proventil HFA] Med 11/30/19 08:27 Active 0 gm INH Q4HR PRN Aspirin Med 11/30/19 09:00 Active 81 mg PO DAILY Docusate Sodium [Colace] Med 11/30/19 07:55 Active 100 mg PO BID PRN Enoxaparin [Lovenox] Med 11/30/19 09:00 Active 40 mg SUBCUT BID Ibuprofen [Motrin] Med 11/30/19 07:55 Active 400 mg PO Q6H PRN Lutein/Minerals/Vit A,C & E [I-Evonne] Med 11/30/19 09:00 Active 1 each PO DAILY Metoprolol Succinate [Toprol XL] Med 11/30/19 21:00 Active 50 mg PO BEDTIME Mometasone/Formoterol [Dulera 200-5 MCG] Med 11/30/19 10:00 Active 2 puff IH BIDRT Ondansetron [Zofran ODT] Med 11/30/19 07:55 Active 4 mg PO Q6H PRN Ondansetron [Zofran] Med 11/30/19 07:55 Active 4 mg IVPUSH Q6H PRN Simvastatin [Zocor] Med 11/30/19 21:00 Active 40 mg PO BEDTIME Sodium Chloride 0.9% [Saline Flush] Med 11/30/19 07:55 Active 10 ml FLUSH ASDIRECTED PRN Temazepam [Restoril] Med 11/30/19 21:00 Active 15 mg PO BEDTIME PRN dexAMETHasone Med 11/30/19 09:00 Active 6 mg PO DAILY lisinopriL [Prinivil] Med 11/30/19 09:00 Active 5 mg PO DAILY Antiembolic Hose [OM.PC] Per Unit Routine Ot 11/30/19 07:55 Ordered Peripheral IV Insertion Adult [OM.PC] Routine Oth 11/30/19 07:55 Ordered Saline Lock Insert [OM.PC] Routine Oth 11/30/19 07:55 Ordered Resuscitation Status Routine Resus Stat 11/30/19 07:55 Ordered Medication Orders Acetaminophen (Tylenol) 650 mg PO Q4H PRN PRN Reason: Pain (Mild 1-3)/fever Albuterol (Proventil Hfa) 0 gm INH Q4HR PRN PRN Reason: Wheezing Aspirin (Aspirin) 81 mg PO DAILY [facility] Last Admin: 11/30/19 09:45 Dose: 81 mg Documented by: MICHAEL Dexamethasone (Dexamethasone) 6 mg PO DAILY [facility] Last Admin: 11/30/19 09:45 Dose: 6 mg Documented by: MICHAEL Docusate Sodium (Colace) 100 mg PO BID PRN PRN Reason: Constipation Enoxaparin Sodium (Lovenox) 40 mg SUBCUT BID [facility] Last Admin: 11/30/19 09:46 Dose: 40 mg Documented by: MICHAEL Ibuprofen (Motrin) 400 mg PO Q6H PRN PRN Reason: Pain (moderate 4-6) Lisinopril (Prinivil) 5 mg PO DAILY [facility] Last Admin: 11/30/19 09:46 Dose: 5 mg Documented by: MICHAEL Metoprolol Succinate (Toprol Xl) 50 mg PO BEDTIME [facility] Mometasone Furoate/Formoterol Fumar (Dulera 200-5 Mcg) 2 puff IH BIDRT [facility] Last Admin: 11/30/19 09:46 Dose: 2 puff Documented by: MICHAEL Multivitamins/Minerals (I-Evonne) 1 each PO DAILY [facility] Last Admin: 11/30/19 09:45 Dose: 1 each Documented by: MICHAEL Ondansetron HCl (Zofran Odt) 4 mg PO Q6H PRN PRN Reason: nausea, able to take PO Ondansetron HCl (Zofran) 4 mg IVPUSH Q6H PRN PRN Reason: Nausea/Vomiting Simvastatin (Zocor) 40 mg PO BEDTIME ZAHIDA Sodium Chloride (Saline Flush) 10 ml FLUSH ASDIRECTED PRN PRN Reason: Keep Vein Open Temazepam (Restoril) 15 mg PO BEDTIME PRN PRN Reason: Sleep Assessment/Plan Comment:: 84-year-old gentleman with a history of COPD, hypertension, coronary artery disease. Presented with increasing shortness of breath. Was diagnosed with the COPD exacerbation and tested positive for COVID 19 infection 3 days prior to presentation. CT chest IMPRESSION: 1. Ground-glass opacities throughout both lungs as discussed above which may represent an atypical pneumonia or pulmonary fibrosis. 2. Moderate centrilobular emphysema. 3. 2 x 1 cm scar versus nodule in the anterior inferior right middle lobe. 4. 6 x 4 mm posterior right upper lobe pulmonary nodule. 5. For both low risk and high risk patients, consider CT at 3 months, PET/CT or biopsy. (Toro et al., Fleischner Society, 2017) 6. Imaging features can be seen with COVID-19 pneumonia, though are nonspecific and can occur with a variety of infectious and noninfectious processes. Acute hypoxemic respiratory failure On presentation to the emergency room oxygen saturations on room air were 88% We will supplement oxygen as needed Taper as possible Acute pneumonia with h/o COPD Most likely due to covid 19 viral infection Will send pro-calcitonin, for now hold antibiotics The patient was hypoxemic with 88% room air saturations on presentation We will initiate dexamethasone, remdesivir Use inhaled steroid, albuterol inhaler Consult infectious disease specialist, Dr. Demarco 21 cm scar versus nodule in the anterior inferior right middle lobe, 6 x 4 mm posterior right upper lobe pulmonary nodule Will need outpatient follow-up hypertension, coronary artery disease Treat with lisinopril, metoprolol, statin, aspirin DVT prophylaxis with increased dose of Lovenox due to concern with Covid infection
--- NOTE | 2019-11-30 13:45 | PCM.SN.2 ---
- Free Text/Narrative Note: discussed code status with patient wish to be Full code
[2019-11-30] MEDS ORDERED: Sodium Chloride 0.9% 10 ML Syringe IV SCH (19:00)
[2019-11-30] MEDS: Albuterol 6.7 GM Inhaler INH PRN (20:08)
[2019-11-30] MEDS ORDERED: Temazepam 15 MG Cap PO PRN (21:00)
[2019-11-30] MEDS ORDERED: Simvastatin 40 MG Tab PO SCH (21:00)
[2019-11-30] MEDS ORDERED: Metoprolol Succinate 50 MG Tab.ER PO SCH (21:00)
[2019-12-01 07:25] LABS: ANION GAP 13.5 mEq/L (7-13); CHLORIDE,CL 106 mmol/L (98-107); SODIUM,NA 142 mmol/L (136-145)
[2019-12-01] MEDS: Formoterol/Mometasone 200-5 MCG 8.8 GM Inhaler IH SCH (07:50)
[2019-12-01] MEDS: Albuterol 6.7 GM Inhaler INH PRN (07:50)
[2019-12-01 08:17] VITALS: BP 164/50; PULSE 67
[2019-12-01 08:19] LABS: BASE EXCESS ARTERIAL 1 mmol/L ((-2)-(+3)); BICARBONATE,ARTERIAL 24.1 mmol/L (22-26); O2 DELIVERY DEVICE SIMPLE MASK; O2 SATURATION ARTERIAL 93 % (95-100); PCO2 ARTERIAL 35 mmHg (35-45); PO2 ARTERIAL 75 mmHg (70-100)
[2019-12-01 08:21] LABS: O2 FLOW RATE 10
[2019-12-01 08:22] LABS: ALLEN TEST LB
--- NOTE | 2019-12-01 08:44 | PCM.DCSUM1 ---
Discharge Summary - Hospital Course Free Text/Narrative:: 84-year-old gentleman with a history of COPD, hypertension, coronary artery disease. Presented with increasing shortness of breath. Was diagnosed with the COPD exacerbation and tested positive for COVID 19 infection 3 days prior to presentation. CT chest IMPRESSION: 1. Ground-glass opacities throughout both lungs as discussed above which may represent an atypical pneumonia or pulmonary fibrosis. 2. Moderate centrilobular emphysema. 3. 2 x 1 cm scar versus nodule in the anterior inferior right middle lobe. 4. 6 x 4 mm posterior right upper lobe pulmonary nodule. 5. For both low risk and high risk patients, consider CT at 3 months, PET/CT or biopsy. (Toro et al., Fleischner Society, 2017) 6. Imaging features can be seen with COVID-19 pneumonia, though are nonspecific and can occur with a variety of infectious and noninfectious processes. Acute hypoxemic respiratory failure On presentation to the emergency room oxygen saturations on room air were 88%on the day oxygen need was 2-6 l nc oxygen overnight oxygen need increased, more sob We will supplement oxygen as needed Acute pneumonia with h/o COPD Most likely due to covid 19 viral infection pro-calcitonin pending, for now hold antibiotics The patient was hypoxemic with 88% room air saturations on presentation initiated dexamethasone, remdesivir Used inhaled steroid, albuterol inhaler Consult infectious disease specialist, Dr. Demarco - additional recommendation was that he might be included in the [place] Plasma trial 21 cm scar versus nodule in the anterior inferior right middle lobe, 6 x 4 mm posterior right upper lobe pulmonary nodule Will need outpatient follow-up hypertension, coronary artery disease Treat with lisinopril, metoprolol, statin, aspirin DVT prophylaxis was with increased dose of Lovenox 40 mg bid due to concern with Covid infection on 11/29 code status was discussed with patient. He wanted to be FULL CODE requested transfer to higher level of care due to increased Oxygen needs accepted by [facility] Diagnosis: Stroke: No - Discharge Data Discharge Date: 12/01/19 Discharge Disposition: Home, Self-Care 01 Condition: Serious - Referral to Home Health Primary Care Physician: PCP Unobtainable - Discharge Diagnosis/Problem(s) (1) COVID-19 with pulmonary comorbidity SNOMED Code(s): 968228023, 646113814 ICD Code: U07.1 - COVID-19; J98.4 - OTHER DISORDERS OF LUNG Status: Acute Current Visit: Yes (2) Viral pneumonia SNOMED Code(s): 94594727 ICD Code: J12.9 - VIRAL PNEUMONIA, UNSPECIFIED Status: Acute Current Visit: Yes (3) COPD with exacerbation SNOMED Code(s): 613694453, 851245929 ICD Code: J44.1 - CHRONIC OBSTRUCTIVE PULMONARY DISEASE W (ACUTE) EXACERBATION Status: Acute Current Visit: No (4) COVID-19 SNOMED Code(s): 940590855 ICD Code: U07.1 - COVID-19 Status: Acute Current Visit: No (5) HTN (hypertension) SNOMED Code(s): 05214947 ICD Code: I10 - ESSENTIAL (PRIMARY) HYPERTENSION Status: Acute Current Visit: Yes - Patient Summary/Data Consults: Consultations 11/30/19 07:54 Consult to Physician [CONS] Routine - Patient Instructions Diet: Heart Healthy Diet Activity: As Tolerated - Discharge Plan *PRESCRIPTION DRUG MONITORING PROGRAM REVIEWED*: Not Applicable *COPY OF PRESCRIPTION DRUG MONITORING REPORT IN PATIENT JASSON: Not Applicable Home Medications: Home Meds Aspirin [Mitchell Chewable Aspirin] 81 mg PO DAILY 04/21/14 [History] Cholecalciferol (Vitamin D3) [Vitamin D3] 2,000 units PO DAILY 04/21/14 [His tory] Metoprolol Succinate 50 mg PO BEDTIME 04/21/14 [History] Simvastatin 40 mg PO BEDTIME 04/21/14 [History] Lisinopril 1 tab PO DAILY 11/30/16 [History] Lutein/Minerals/Vit A,C & E [Ocuvite] 1 tab PO DAILY 12/01/16 [History] Acetaminophen [Tylenol] 650 mg PO Q4H PRN tablet 12/01/19 [Rx] Albuterol [Proventil HFA] 0 gm INH Q4HR PRN inhaler 12/01/19 [Rx] Docusate Sodium [Colace] 100 mg PO BID PRN cap 12/01/19 [Rx] Enoxaparin [Lovenox] 40 mg SUBCUT BID syringe 12/01/19 [Rx] Mometasone/Formoterol [Dulera 200-5 MCG] 2 puff IH BIDRT inhaler 12/01/19 [Rx] Remdesivir (Eua) 100 mg IV Q24H vial 12/01/19 [Rx] Temazepam [Restoril] 15 mg PO BEDTIME PRN cap 12/01/19 [Rx] dexAMETHasone [Dexamethasone] 6 mg PO DAILY tablet 12/01/19 [Rx] Oxygen Therapy Mode: Simple Mask Oxygen Flow Rate (L/min): 10 Forms: ED Department Discharge - Discharge Summary/Plan Comment DC Time >30 min.: Yes (arranging tx., ambulance, dw dr. Weiner from [place]) - General Info Date of Service: 12/01/19 - Review of Systems General: Denies: Fever Pulmonary: Reports: Shortness of Breath. Denies: Sputum, Wheezing Cardiovascular: Reports: Chest Pain, Palpitations, Dyspnea on Exertion. Denies: Edema Gastrointestinal: Denies: Abdominal Pain Genitourinary: Denies: Dysuria Neurological: Denies: Confusion Psychiatric: Reports: Anxiety - Patient Data Vitals - Most Recent: Last Vital Signs Temp 97.5 F 12/01/19 08:16 Pulse 67 12/01/19 08:16 Resp 26 H 12/01/19 08:16 BP 164/50 H 12/01/19 08:16 Pulse Ox 94 L 12/01/19 08:16 Weight - Most Recent: 140 lb 11.2 oz I&O - Last 24 hours: Intake & Output 11/30/19 12/01/19 12/01/19 22:59 06:59 14:59 Intake Total 340 Output Total 400 Balance 340 -400 Lab Results - Last 24 hrs: Laboratory Results - last 24 hr 12/01/19 12/01/19 12/01/19 Range/Units 06:35 06:35 06:35 WBC 6.6 (5.0-10.0) 10^3/uL RBC 4.97 (4.6-6.2) 10^6/uL Hgb 15.6 (14.0-18.0) g/dL Hct 47.0 (40.0-54.0) % MCV 94.6 (80-100) fL MCH 31.4 (27.0-34.0) pg MCHC 33.2 (33.0-35.0) g/dL Plt Count 224 D (150-450) 10^3/uL Neut % (Auto) 76.0 H (42.2-75.2) % Lymph % (Auto) 15.2 L (20.5-50.1) % Patrick % (Auto) 8.6 H (2-8) % Eos % (Auto) 0.0 L (1.0-3.0) % Baso % (Auto) 0.2 (0.0-1.0) % ESR 19 H (0-15) mm/hr ABG pH (7.35-7.45) ABG pCO2 (35-45) mmHg ABG pO2 (70-100) mmHg ABG HCO3 (22-26) mmol/L ABG O2 Saturation (95-100) % ABG Base Excess ((-2)-(+3)) mmol/L Oumar Test O2 Delivery Device Oxygen Flow Rate Sodium 142 (136-145) mmol/L Potassium 4.5 (3.5-5.1) mmol/L Chloride 106 (98-107) mmol/L Carbon Dioxide 27 (21-32) mmol/L Anion Gap 13.5 H (7-13) mEq/L BUN 22 H (7-18) mg/dL Creatinine 0.99 (0.70-1.30) mg/dL Est Cr Clr Drug Dosing 51.93 mL/min Estimated GFR (MDRD) > 60 Glucose 103 H (74-99) mg/dL Calcium 8.4 L (8.5-10.1) mg/dL Phosphorus 3.6 (2.6-4.7) mg/dL Magnesium 2.4 (1.8-2.4) mg/dL Total Bilirubin 0.5 (0.2-1.0) mg/dL Direct Bilirubin 0.2 (0.0-0.2) mg/dL Indirect Bilirubin 0.3 AST 35 (15-37) U/L ALT 28 (16-63) U/L Alkaline Phosphatase 43 L (46-116) U/L C-Reactive Protein 5.3 H (0.0-0.9) mg/dL Total Protein 6.4 (6.4-8.2) g/dL Albumin 2.5 L (3.4-5.0) g/dL Globulin 3.9 Albumin/Globulin Ratio 0.64 08/14/20 Range/Units 08:15 WBC (5.0-10.0) 10^3/uL RBC (4.6-6.2) 10^6/uL Hgb (14.0-18.0) g/dL Hct (40.0-54.0) % MCV (80-100) fL MCH (27.0-34.0) pg MCHC (33.0-35.0) g/dL Plt Count (150-450) 10^3/uL Neut % (Auto) (42.2-75.2) % Lymph % (Auto) (20.5-50.1) % Patrick % (Auto) (2-8) % Eos % (Auto) (1.0-3.0) % Baso % (Auto) (0.0-1.0) % ESR (0-15) mm/hr ABG pH 7.45 (7.35-7.45) ABG pCO2 35 (35-45) mmHg ABG pO2 75 (70-100) mmHg ABG HCO3 24.1 (22-26) mmol/L ABG O2 Saturation 93 L (95-100) % ABG Base Excess 1 ((-2)-(+3)) mmol/L Oumar Test Lb O2 Delivery Device Simple mask Oxygen Flow Rate 10 Sodium (136-145) mmol/L Potassium (3.5-5.1) mmol/L Chloride (98-107) mmol/L Carbon Dioxide (21-32) mmol/L Anion Gap (7-13) mEq/L BUN (7-18) mg/dL Creatinine (0.70-1.30) mg/dL Est Cr Clr Drug Dosing mL/min Estimated GFR (MDRD) Glucose (74-99) mg/dL Calcium (8.5-10.1) mg/dL Phosphorus (2.6-4.7) mg/dL Magnesium (1.8-2.4) mg/dL Total Bilirubin (0.2-1.0) mg/dL Direct Bilirubin (0.0-0.2) mg/dL Indirect Bilirubin AST (15-37) U/L ALT (16-63) U/L Alkaline Phosphatase (46-116) U/L C-Reactive Protein (0.0-0.9) mg/dL Total Protein (6.4-8.2) g/dL Albumin (3.4-5.0) g/dL Globulin Albumin/Globulin Ratio Med Orders - Current: Current Medications Acetaminophen (Tylenol) 650 mg PO Q4H PRN PRN Reason: Pain (Mild 1-3)/fever Albuterol (Proventil Hfa) 0 gm INH Q4HR PRN PRN Reason: Wheezing Last Admin: 12/01/19 07:50 Dose: 2 puff Documented by: Aspirin (Aspirin) 81 mg PO DAILY [facility] Last Admin: 11/30/19 09:45 Dose: 81 mg Documented by: Dexamethasone (Dexamethasone) 6 mg PO DAILY [facility] Last Admin: 11/30/19 09:45 Dose: 6 mg Documented by: Docusate Sodium (Colace) 100 mg PO BID PRN PRN Reason: Constipation Enoxaparin Sodium (Lovenox) 40 mg SUBCUT BID [facility] Last Admin: 11/30/19 20:10 Dose: 40 mg Documented by: REMDESIVIR (EUA) 100 mg/ (Sodium Chloride) 250 mls @ 250 mls/hr IV Q24H [facility] Stop: 12/04/19 18:59 Ibuprofen (Motrin) 400 mg PO Q6H PRN PRN Reason: Pain (moderate 4-6) Last Admin: 11/30/19 20:09 Dose: 400 mg Documented by: Lisinopril (Prinivil) 5 mg PO DAILY [facility] Last Admin: 11/30/19 09:46 Dose: 5 mg Documented by: Metoprolol Succinate (Toprol Xl) 50 mg PO BEDTIME [facility] Last Admin: 11/30/19 20:09 Dose: 50 mg Documented by: Mometasone Furoate/Formoterol Fumar (Dulera 200-5 Mcg) 2 puff IH BIDRT [facility] Last Admin: 12/01/19 07:50 Dose: 2 puff Documented by: Multivitamins/Minerals (I-Evonne) 1 each PO DAILY [facility] Last Admin: 11/30/19 09:45 Dose: 1 each Documented by: Ondansetron HCl (Zofran Odt) 4 mg PO Q6H PRN PRN Reason: nausea, able to take PO Ondansetron HCl (Zofran) 4 mg IVPUSH Q6H PRN PRN Reason: Nausea/Vomiting Simvastatin (Zocor) 40 mg PO BEDTIME [facility] Last Admin: 11/30/19 20:10 Dose: 40 mg Documented by: Sodium Chloride (Saline Flush) 10 ml FLUSH ASDIRECTED PRN PRN Reason: Keep Vein Open Sodium Chloride (Saline Flush) 30 ml IV DAILY@1900 [facility] Stop: 12/04/19 19:01 Last Admin: 11/30/19 18:52 Dose: 30 ml Documented by: Temazepam (Restoril) 15 mg PO BEDTIME PRN PRN Reason: Sleep Last Admin: 11/30/19 20:09 Dose: 15 mg Documented by: Discontinued Medications REMDESIVIR (EUA) 200 mg/ (Sodium Chloride) 250 mls @ 250 mls/hr IV ONETIME ONE Stop: 11/30/19 18:59 Last Admin: 11/30/19 17:42 Dose: 250 mls/hr Documented by: - Exam General: Reports: Alert, Oriented Lungs: Reports: Decreased Breath Sounds Cardiovascular: Reports: Regular Rate, Regular Rhythm Extremities: No Pedal Edema Psy/Mental Status: Reports: Alert, Anxious EKG INTERPRETATION Rhythm: NSR QRS: LBBB
[2019-12-01] MEDS: Aspirin 81 MG Tab.Chew PO SCH (10:23)
[2019-12-01] MEDS: Dexamethasone 4 MG Tab PO SCH (10:23)
[2019-12-01] MEDS: Lutein/Minerals/Vit A,C & E Tab PO SCH (10:24)
[2019-12-01] MEDS: Lisinopril 5 MG Tab PO SCH (10:24)
[2019-12-01] MEDS: Enoxaparin 40 MG/0.4 ML Syringe SUBCUT SCH (10:24)
== END 2019-12-01 09:15 | disposition home or self-care (01) | DRG 177 ==
LOC: DL.ED 01:36 → DL.MS 04:59
PROVIDERS: ADMIT Internal Medicine; ATTEND Internal Medicine
PROC: XW033E5 Introduction of Remdesivir Anti-infective into Peripheral Vein, Percutaneous Approach, New Technology Group 5 (ICD-10-PCS; principal; 2019-11-30)
PROC: 8E0ZXY6 Isolation (ICD-10-PCS; 2019-11-30)
DX: J44.1 Chronic obstructive pulmonary disease with (acute) exacerbation (principal); R09.02 Hypoxemia; U07.1 COVID-19; J12.89 Other viral pneumonia; J96.01 Acute respiratory failure with hypoxia; H35.30 Unspecified macular degeneration; J43.2 Centrilobular emphysema; I10 Essential (primary) hypertension; I25.10 Atherosclerotic heart disease of native coronary artery without angina pectoris; E78.00 Pure hypercholesterolemia, unspecified; Z86.010 Personal history of colon polyps; Z87.11 Personal history of peptic ulcer disease; H91.90 Unspecified hearing loss, unspecified ear; R91.1 Solitary pulmonary nodule; Z98.42 Cataract extraction status, left eye; Z96.1 Presence of intraocular lens; Z95.5 Presence of coronary angioplasty implant and graft; Z88.0 Allergy status to penicillin; Z88.8 Allergy status to other drugs, medicaments and biological substances; F10.10 Alcohol abuse, uncomplicated; Y90.9 Presence of alcohol in blood, level not specified; Z79.82 Long term (current) use of aspirin; Z79.899 Other long term (current) drug therapy; I25.2 Old myocardial infarction; Z90.49 Acquired absence of other specified parts of digestive tract; Z87.891 Personal history of nicotine dependence
CPT/HCPCS: 36415; 36600; 71250; 80048; 80053; 80076; 80307; 82803; 83605; 83615; 83735; 83880; 84100; 84484; 85025; 85379; 85651; 86140; 93005; 94760; 99284; 99285-25; A9270-GY; J1650; J7050; J8540

== ENCOUNTER 2019-12-21 09:29 | Inpatient (IN) | payer MEDICARE, OTHER ==
[2019-12-21] MEDS ORDERED: Albuterol 6.7 GM Inhaler INH PRN (14:25)
[2019-12-21] MEDS ORDERED: Sodium Chloride 0.9% 10 ML Syringe FLUSH PRN (14:38)
[2019-12-21] MEDS ORDERED: Ondansetron 4 MG Tab.DIS PO PRN (14:38)
[2019-12-21] MEDS ORDERED: Docusate Sodium 100 MG Cap PO PRN (14:38)
[2019-12-21] MEDS ORDERED: 50% Dextrose in Water 50 ML Syringe IVPUSH PRN (14:44)
--- NOTE | 2019-12-21 15:01 | PCM.HP ---
H&P History of Present Illness - General Date of Service: 12/21/19 Admit Problem/Dx: Admission Diagnosis/Problem Admission Diagnosis/Problem Weakness Source of Information: Patient - History of Present Illness Initial Comments - Free Text/Narative: The patient recently developed overweight 19 pneumonia and acute COPD exacerbation with acute hypoxemic respiratory failure The patient was treated at [facility]. He improved but continues to require oxygen. Significantly weak and requiring physical and occupational therapy prior to discharge He is feeling better though, Has moderate shortness of breath, worse with activity No associated chest pain No fever or chills - Related Data Allergies/Adverse Reactions: Allergies Allergy/AdvReac Type Severity Reaction Status Date / Time atorvastatin calcium Allergy Rash Verified 12/21/19 10:49 [From Lipitor] Penicillins Allergy Rash Verified 12/21/19 10:49 Home Medications: Home Meds Cholecalciferol (Vitamin D3) [Vitamin D3] 2,000 units PO DAILY 04/21/14 [History] Metoprolol Succinate 50 mg PO BEDTIME 04/21/14 [History] Simvastatin 40 mg PO BEDTIME 04/21/14 [History] Lutein/Minerals/Vit A,C & E [Ocuvite] 1 tab PO DAILY 12/01/16 [History] Albuterol [Proventil HFA] 2 puff INH Q6HR PRN 12/21/19 [History] Aspirin [Halfprin] 81 mg PO DAILY 12/21/19 [History] lisinopriL [Lisinopril] 10 mg PO DAILY 12/21/19 [History] Past Medical History HEENT History: Reports: Hard of Hearing, Macular Degeneration Cardiovascular History: Reports: Angina, Arrhythmia, CAD, High Cholesterol, Hypertension, [place], Other (See Below) Other Cardiovascular History: 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 HX OF TUBULAR ADENOMA Genitourinary History: Reports: None Musculoskeletal History: Reports: Fracture, Other (See Below) Other Musculoskeletal History: HX OF FRACTURE CALCANEUS-CLOSED. HX OF BURSITIS, RIGHT HIP TENDONITIS RT THIGH MUSCLE Neurological History: Reports: None Psychiatric History: Reports: None Endocrine/Metabolic History: Reports: None Hematologic History: Reports: None Immunologic History: Reports: None Oncologic (Cancer) History: Reports: None Dermatologic History: Reports: None - Infectious Disease History Infectious Disease History: Reports: Measles - Past Surgical History Head Surgeries/Procedures: Reports: None HEENT Surgical History: Reports: Cataract Surgery, Other (See Below) Other HEENT Surgeries/Procedures: FORIEGN BODY REMOVED RIGHT EYE. CATARACT REMOVAL WITH LENS PLACEMENT LEFT EYE Cardiovascular Surgical History: Reports: Coronary Artery Stent, Other (See Below) Other Cardiovascular Surgeries/Procedures: CORONARY ANGIOPLASTY 2 stents Respiratory Surgical History: Reports: None GI Surgical History: Reports: Appendectomy, Colonoscopy, Polypectomy, Other (See Below) Other GI Surgeries/Procedures: HX OF THROMBOSED EXTERNAL HEMORRHOIDS, I & D OF HEMORRHOIDS Male Surgical History: Reports: None Endocrine Surgical History: Reports: None Neurological Surgical History: Reports: None Musculoskeletal Surgical History: Reports: None Oncologic Surgical History: Reports: None Dermatological Surgical History: Reports: None Social & Family History - Family History Family Medical History: Noncontributory - Tobacco Use Smoking Status *Q: Former Smoker Used Tobacco, but Quit: Yes Month/Year Tobacco Last Used: 60 Second Hand Smoke Exposure: No - Caffeine Use Caffeine Use: Reports: Coffee Other Caffeine Use: AVERAGE OF 12 CUPS DAILY - Recreational Drug Use Recreational Drug Use: No - Living Situation & Occupation Living situation: Reports: Occupation: Retired H&P Review of Systems - Review of Systems: Review Of Systems: See Below General: Reports: Weakness. Denies: Fever, Chills Pulmonary: Reports: Shortness of Breath Cardiovascular: Denies: Chest Pain, Edema Gastrointestinal: Denies: Abdominal Pain Psychiatric: Denies: Confusion Exam - Exam Exam: See Below - Vital Signs Weight: 128 lb 6.4 oz - Exam General: Alert, Oriented Neck: Supple Lungs: Normal Respiratory Effort, Decreased Breath Sounds, Rhonchi Cardiovascular: Regular Rate, Regular Rhythm GI/Abdominal Exam: Normal Bowel Sounds, Soft, Non-Tender Extremities: No Pedal Edema - Problem List (1) COPD with exacerbation SNOMED Code(s): 464775423, 544830241 ICD Code: J44.1 - CHRONIC OBSTRUCTIVE PULMONARY DISEASE W (ACUTE) EXACERBATION Status: Acute Current Visit: No (2) COVID-19 SNOMED Code(s): 891911631 ICD Code: U07.1 - COVID-19 Status: Acute Current Visit: No (3) COVID-19 with pulmonary comorbidity SNOMED Code(s): 138408273, 238398005 ICD Code: U07.1 - COVID-19; J98.4 - OTHER DISORDERS OF LUNG Status: Acute Current Visit: No (4) HTN (hypertension) SNOMED Code(s): 75902868 ICD Code: I10 - ESSENTIAL (PRIMARY) HYPERTENSION Status: Acute Current Visit: No (5) Hypoxemia SNOMED Code(s): 984930789 ICD Code: R09.02 - HYPOXEMIA Status: Acute Current Visit: No Problem List Initiated/Reviewed/Updated: Yes Orders Last 24hrs: Active Orders 24 hr Category Date Time Status Patient Status [ADT] Routine ADT 12/21/19 14:38 Active Antiembolic Devices [RC] PER UNIT ROUTINE Care 12/21/19 14:40 Active Blood Glucose Check, Bedside [RC] WITHMEALSANDBED Care 12/21/19 14:44 Active Oxygen Therapy [RC] PRN Care 12/21/19 14:38 Active RT Aerosol Therapy [RC] ASDIRECTED Care 12/21/19 14:42 Active RT Post Treatment Assessment [RC] Click to Edit Care 12/21/19 14:26 Active RT Pre-Treatment Assessment [RC] Click to Edit Care 12/21/19 14:26 Active Up With Assistance [RC] ASDIRECTED Care 12/21/19 14:38 Active VTE/DVT Education [RC] PER UNIT ROUTINE Care 12/21/19 14:38 Active Vital Signs [RC] QSHIFT Care 12/21/19 14:38 Active OT Evaluation and Treatment [CONS] Routine Cons 12/21/19 14:53 Active PT Evaluation and Treatment [CONS] Routine Cons 12/21/19 14:53 Active Regular Diet [DIET] Diet 12/21/19 Dinner Active Acetaminophen [TylenoL] Med 12/21/19 14:38 Ordered 650 mg PO Q4H PRN Albuterol/Ipratropium [DuoNeb 3.0-0.5 MG/3 ML] Med 12/21/19 14:42 Ordered 3 ml NEB Q2H PRN Albuterol/Ipratropium [DuoNeb 3.0-0.5 MG/3 ML] Med 12/21/19 21:00 Ordered 3 ml NEB TID Aspirin [Halfprin] Med 12/22/19 09:00 Ordered 81 mg PO DAILY Budesonide [Pulmicort] Med 12/21/19 18:00 Ordered 0.5 mg NEB BIDRT Docusate Sodium [Colace] Med 12/21/19 14:38 Ordered 100 mg PO BID PRN Enoxaparin [Lovenox] Med 12/21/19 21:00 Ordered 30 mg SUBCUT Q12HR Lutein/Minerals/Vit A,C & E [I-Evonne] Med 12/22/19 09:00 Ordered 1 each PO DAILY Metoprolol Succinate [Toprol XL] Med 12/21/19 21:00 Ordered 50 mg PO BEDTIME Ondansetron [Zofran ODT] Med 12/21/19 14:38 Ordered 4 mg PO Q6H PRN Simvastatin [Zocor] Med 12/21/19 21:00 Ordered 40 mg PO BEDTIME Sodium Chloride 0.9% [Saline Flush] Med 12/21/19 14:38 Ordered 10 ml FLUSH ASDIRECTED PRN lisinopriL [Prinivil] Med 12/22/19 09:00 Ordered 10 mg PO DAILY Peripheral IV Insertion Adult [OM.PC] Routine Oth 12/21/19 14:38 Ordered Saline Lock Insert [OM.PC] Routine Oth 12/21/19 14:38 Ordered Sequential Compression Device [OM.PC] Per Unit Routine Oth 12/21/19 14:39 Ordered Resuscitation Status Routine Resus Stat 12/21/19 14:38 Ordered Medication Orders Acetaminophen (Tylenol) 650 mg PO Q4H PRN PRN Reason: Pain (Mild 1-3)/fever Albuterol/Ipratropium (Duoneb 3.0-0.5 Mg/3 Ml) 3 ml NEB TID [facility] Albuterol/Ipratropium (Duoneb 3.0-0.5 Mg/3 Ml) 3 ml NEB Q2H PRN PRN Reason: sob Aspirin (Halfprin) 81 mg PO DAILY [facility] Budesonide (Pulmicort) 0.5 mg NEB BIDRT [facility] Docusate Sodium (Colace) 100 mg PO BID PRN PRN Reason: Constipation Enoxaparin Sodium (Lovenox) 30 mg SUBCUT Q12HR [facility] Lisinopril (Prinivil) 10 mg PO DAILY [facility] Metoprolol Succinate (Toprol Xl) 50 mg PO BEDTIME [facility] Multivitamins/Minerals (I-Evonne) 1 each PO DAILY [facility] Ondansetron HCl (Zofran Odt) 4 mg PO Q6H PRN PRN Reason: nausea, able to take PO Simvastatin (Zocor) 40 mg PO BEDTIME [facility] Sodium Chloride (Saline Flush) 10 ml FLUSH ASDIRECTED PRN PRN Reason: Keep Vein Open Assessment/Plan Comment:: COVID 19 pneumonia Status post treatment with remdesivir, plasma Improved Acute hypoxemic respiratory failure due to COPD, Covid 19 pneumonia Well supplement oxygen as needed COPD Resolved acute exacerbation Use DuoNeb scheduled and as needed Use Pulmicort nebulizer twice a day Hypertension Treat with lisinopril, metoprolol Dyslipidemia Continue statin On last CT there was a 2 x 1 cm scar versus nodule in the anterior inferior right middle lobe Recommend follow-up with primary care after discharge Further care might involve 3 month follow-up CT or more aggressive PET CT, biopsy DVT prophylaxis - status post Covid 19 pneumonia Well continue Lovenox 30 mg twice a day CODE STATUS was discussed with patient. He would like DNR CODE STATUS
[2019-12-21] MEDS ORDERED: Insulin Lispro 100 Units/ML 3 ML Vial SUBCUT SCH (18:00)
[2019-12-21] MEDS: Budesonide 0.5 MG/2 ML Neb Susp NEB SCH (19:23)
[2019-12-21] MEDS: Albuterol/Ipratropium 3.0-0.5 MG/3 ML Neb Soln NEB SCH (19:23)
[2019-12-21] MEDS: Simvastatin 40 MG Tab PO SCH (21:47)
[2019-12-21] MEDS: Metoprolol Succinate 50 MG Tab.ER PO SCH (21:49)
[2019-12-21] MEDS: Enoxaparin 30 MG/0.3 ML Syringe SUBCUT SCH (21:50)
[2019-12-21] MEDS ORDERED: Heparin Sodium 5,000 Units/ML Vial SUBCUT SCH (22:00)
[2019-12-22] MEDS: Albuterol/Ipratropium 3.0-0.5 MG/3 ML Neb Soln NEB SCH ×3 (07:40→18:07)
[2019-12-22] MEDS: Budesonide 0.5 MG/2 ML Neb Susp NEB SCH ×2 (07:42→18:06)
[2019-12-22] MEDS: Lisinopril 10 MG Tab PO SCH (09:12)
[2019-12-22] MEDS: Enoxaparin 30 MG/0.3 ML Syringe SUBCUT SCH ×2 (09:12→20:56)
[2019-12-22] MEDS: Aspirin 81 MG Tab.EC PO SCH (09:12)
[2019-12-22] MEDS: Lutein/Minerals/Vit A,C & E Tab PO SCH (09:12)
[2019-12-22] MEDS: Metoprolol Succinate 50 MG Tab.ER PO SCH (20:56)
[2019-12-22] MEDS: Simvastatin 40 MG Tab PO SCH (20:56)
[2019-12-22] MEDS: Albuterol/Ipratropium 3.0-0.5 MG/3 ML Neb Soln NEB PRN (21:06)
[2019-12-22] MEDS: Acetaminophen 325 MG Tab PO PRN (22:01)
[2019-12-23] MEDS: Albuterol/Ipratropium 3.0-0.5 MG/3 ML Neb Soln NEB SCH ×3 (07:55→17:42)
[2019-12-23] MEDS: Budesonide 0.5 MG/2 ML Neb Susp NEB SCH ×2 (07:56→17:42)
[2019-12-23] MEDS: Enoxaparin 30 MG/0.3 ML Syringe SUBCUT SCH ×2 (09:02→21:32)
[2019-12-23] MEDS: Aspirin 81 MG Tab.EC PO SCH (09:03)
[2019-12-23] MEDS: Lutein/Minerals/Vit A,C & E Tab PO SCH (09:03)
[2019-12-23] MEDS: Lisinopril 10 MG Tab PO SCH (09:06)
[2019-12-23] MEDS: Acetaminophen 325 MG Tab PO PRN (21:32)
[2019-12-23] MEDS: Simvastatin 40 MG Tab PO SCH (21:33)
[2019-12-23] MEDS: Metoprolol Succinate 50 MG Tab.ER PO SCH (21:34)
[2019-12-24] MEDS: Albuterol/Ipratropium 3.0-0.5 MG/3 ML Neb Soln NEB SCH ×3 (07:51→17:55)
[2019-12-24] MEDS: Budesonide 0.5 MG/2 ML Neb Susp NEB SCH ×2 (07:51→17:55)
[2019-12-24] MEDS: Enoxaparin 30 MG/0.3 ML Syringe SUBCUT SCH ×2 (09:01→20:35)
[2019-12-24] MEDS: Lutein/Minerals/Vit A,C & E Tab PO SCH (09:01)
[2019-12-24] MEDS: Lisinopril 10 MG Tab PO SCH (09:01)
[2019-12-24] MEDS: Aspirin 81 MG Tab.EC PO SCH (09:01)
[2019-12-24] MEDS: Metoprolol Succinate 50 MG Tab.ER PO SCH (20:33)
[2019-12-24] MEDS: Simvastatin 40 MG Tab PO SCH (20:35)
[2019-12-25] MEDS: Albuterol/Ipratropium 3.0-0.5 MG/3 ML Neb Soln NEB SCH ×3 (06:38→17:52)
[2019-12-25] MEDS: Budesonide 0.5 MG/2 ML Neb Susp NEB SCH ×2 (06:38→17:51)
[2019-12-25] MEDS: Aspirin 81 MG Tab.EC PO SCH (09:08)
[2019-12-25] MEDS: Lutein/Minerals/Vit A,C & E Tab PO SCH (09:08)
[2019-12-25] MEDS: Lisinopril 10 MG Tab PO SCH (09:08)
[2019-12-25] MEDS: Enoxaparin 30 MG/0.3 ML Syringe SUBCUT SCH ×3 (09:08→20:37)
[2019-12-25] MEDS: Metoprolol Succinate 50 MG Tab.ER PO SCH (20:36)
[2019-12-25] MEDS: Simvastatin 40 MG Tab PO SCH (20:36)
[2019-12-26] MEDS: Albuterol/Ipratropium 3.0-0.5 MG/3 ML Neb Soln NEB PRN (04:23)
[2019-12-26] MEDS: Acetaminophen 325 MG Tab PO PRN ×3 (04:28→22:11)
[2019-12-26 06:44] LABS: ANION GAP 9.4 mEq/L (7-13); CHLORIDE,CL 103 mmol/L (98-107); SODIUM,NA 137 mmol/L (136-145)
[2019-12-26] MEDS: Albuterol/Ipratropium 3.0-0.5 MG/3 ML Neb Soln NEB SCH ×3 (07:20→17:47)
[2019-12-26] MEDS: Budesonide 0.5 MG/2 ML Neb Susp NEB SCH ×2 (07:21→17:48)
[2019-12-26] MEDS: Aspirin 81 MG Tab.EC PO SCH (09:03)
[2019-12-26] MEDS: Enoxaparin 30 MG/0.3 ML Syringe SUBCUT SCH ×2 (09:03→21:06)
[2019-12-26] MEDS: Lutein/Minerals/Vit A,C & E Tab PO SCH (09:03)
[2019-12-26] MEDS: Lisinopril 10 MG Tab PO SCH (09:04)
--- NOTE | 2019-12-26 13:02 | PCM.PN ---
- General Info Date of Service: 12/26/19 Admission Dx/Problem (Free Text): Admission Diagnosis/Problem Admission Diagnosis/Problem Weakness Subjective Update: Feeling well, participating in physical and occupational therapy well. Eating okay. Has cough with no sputum production No associated fever Functional Status: Reports: Pain Controlled - Review of Systems General: Reports: Weakness. Denies: Fever Pulmonary: Denies: Shortness of Breath Cardiovascular: Denies: Chest Pain, Edema Neurological: Denies: Confusion - Patient Data Vitals - Most Recent: Last Vital Signs Temp 98.0 F 12/26/19 08:12 Pulse 85 12/26/19 08:12 Resp 20 12/26/19 08:12 BP 102/60 12/26/19 09:04 Pulse Ox 96 12/26/19 08:12 Weight - Most Recent: 128 lb 6.4 oz I&O - Last 24 Hours: Intake & Output 12/25/19 12/26/19 12/26/19 22:59 06:59 14:59 Intake Total 300 150 Output Total 100 300 Balance 200 -150 Lab Results Last 24 Hours: Laboratory Results - last 24 hr 12/26/19 12/26/19 Range/Units 06:16 06:16 WBC 8.6 (5.0-10.0) 10^3/uL RBC 3.49 L (4.6-6.2) 10^6/uL Hgb 11.0 L D (14.0-18.0) g/dL Hct 34.5 L (40.0-54.0) % MCV 98.9 D (80-100) fL MCH 31.5 (27.0-34.0) pg MCHC 31.9 L (33.0-35.0) g/dL Plt Count 453 H D (150-450) 10^3/uL Neut % (Auto) 68.5 (42.2-75.2) % Lymph % (Auto) 15.3 L (20.5-50.1) % Campbell % (Auto) 13.0 H (2-8) % Eos % (Auto) 2.9 (1.0-3.0) % Baso % (Auto) 0.3 (0.0-1.0) % Sodium 137 (136-145) mmol/L Potassium 4.4 (3.5-5.1) mmol/L Chloride 103 (98-107) mmol/L Carbon Dioxide 29 (21-32) mmol/L Anion Gap 9.4 (7-13) mEq/L BUN 13 (7-18) mg/dL Creatinine 0.93 (0.70-1.30) mg/dL Est Cr Clr Drug Dosing 50.45 mL/min Estimated GFR (MDRD) > 60 Glucose 106 H (74-99) mg/dL Calcium 8.3 L (8.5-10.1) mg/dL Med Orders - Current: Current Medications Acetaminophen (Tylenol) 650 mg PO Q4H PRN PRN Reason: Pain (Mild 1-3)/fever Last Admin: 12/26/19 04:28 Dose: 650 mg Documented by: Albuterol/Ipratropium (Duoneb 3.0-0.5 Mg/3 Ml) 3 ml NEB TID@0700,1300,1800 [facility] Last Admin: 12/26/19 07:20 Dose: 3 ml Documented by: Albuterol/Ipratropium (Duoneb 3.0-0.5 Mg/3 Ml) 3 ml NEB Q2H PRN PRN Reason: sob Last Admin: 12/26/19 04:23 Dose: 3 ml Documented by: Aspirin (Halfprin) 81 mg PO DAILY [facility] Last Admin: 12/26/19 09:03 Dose: 81 mg Documented by: Budesonide (Pulmicort) 0.5 mg NEB BIDRT [facility] Last Admin: 12/26/19 07:21 Dose: 0.5 mg Documented by: Calcium Carbonate/Glycine (Tums) 500 mg PO Q4H PRN PRN Reason: Heartburn Docusate Sodium (Colace) 100 mg PO BID PRN PRN Reason: Constipation Last Admin: 12/25/19 09:08 Dose: 100 mg Documented by: Enoxaparin Sodium (Lovenox) 30 mg SUBCUT Q12HR [facility] Last Admin: 12/26/19 09:03 Dose: Not Given Documented by: Guaifenesin (Robitussin) 100 mg PO Q6H PRN PRN Reason: Cough Lisinopril (Prinivil) 10 mg PO DAILY [facility] Last Admin: 12/26/19 09:04 Dose: 10 mg Documented by: Metoprolol Succinate (Toprol Xl) 50 mg PO BEDTIME [facility] Last Admin: 12/25/19 20:36 Dose: 50 mg Documented by: Multivitamins/Minerals (I-Evonne) 1 each PO DAILY [facility] Last Admin: 12/26/19 09:03 Dose: 1 each Documented by: Ondansetron HCl (Zofran Odt) 4 mg PO Q6H PRN PRN Reason: nausea, able to take PO Simvastatin (Zocor) 40 mg PO BEDTIME [facility] Last Admin: 12/25/19 20:36 Dose: 40 mg Documented by: Discontinued Medications Albuterol (Proventil Hfa) gm INH Q6HR PRN PRN Reason: Shortness of Breath Dextrose/Water (Dextrose 50% In Water) 25 ml IVPUSH ASDIRECTED PRN PRN Reason: Hypoglycemia BS<70 Heparin Sodium (Porcine) (Heparin Sodium) 5,000 units SUBCUT Q8HR [facility] Insulin Human Lispro (Humalog) 0 unit SUBCUT WITHMEALSANDBED [facility]; Protocol Sodium Chloride (Saline Flush) 10 ml FLUSH ASDIRECTED PRN PRN Reason: Keep Vein Open - Exam General: Alert, Oriented Neck: Supple Lungs: Normal Respiratory Effort, Decreased Breath Sounds Cardiovascular: Regular Rate, Regular Rhythm GI/Abdominal Exam: Normal Bowel Sounds, Soft, Non-Tender Extremities: No Pedal Edema Neurological: No New Focal Deficit Psy/Mental Status: Alert, Normal Affect, Normal Mood Sepsis Event Note - Evaluation Sepsis Screening Result: No Definite Risk - Focused Exam Vital Signs: Vital Signs Temp Pulse Resp BP BP Pulse Ox Pulse Ox 12/26/19 09:04 102/60 12/26/19 08:12 98.0 F 85 20 102/47 L 96 12/26/19 07:21 79 90 L 12/26/19 04:40 86 20 112/40 L 92 L 12/26/19 04:25 86 92 L - Problem List & Annotations (1) COPD with exacerbation SNOMED Code(s): 343693447, 502394976 Code(s): J44.1 - CHRONIC OBSTRUCTIVE PULMONARY DISEASE W (ACUTE) EXACERBATION Status: Acute Current Visit: No (2) COVID-19 SNOMED Code(s): 242238444 Code(s): U07.1 - COVID-19 Status: Acute Current Visit: No (3) COVID-19 with pulmonary comorbidity SNOMED Code(s): 878648086, 977643111 Code(s): U07.1 - COVID-19; J98.4 - OTHER DISORDERS OF LUNG Status: Acute Current Visit: No (4) HTN (hypertension) SNOMED Code(s): 31073142 Code(s): I10 - ESSENTIAL (PRIMARY) HYPERTENSION Status: Acute Current Visit: No (5) Hypoxemia SNOMED Code(s): 892661625 Code(s): R09.02 - HYPOXEMIA Status: Acute Current Visit: No - Problem List Review Problem List Initiated/Reviewed/Updated: Yes - My Orders Last 24 Hours: My Active Orders 12/26/19 12:59 guaiFENesin [Robitussin] 100 mg PO Q6H PRN - Plan Plan:: COVID 19 pneumonia Status post treatment with remdesivir, plasma resolved Acute hypoxemic respiratory failure due to COPD, Covid 19 pneumonia Well supplement oxygen as needed COPD Resolved acute exacerbation Use DuoNeb scheduled and as needed Use Pulmicort nebulizer twice a day Hypertension Treat with lisinopril, metoprolol Dyslipidemia Continue statin On last CT there was a 2 x 1 cm scar versus nodule in the anterior inferior right middle lobe Recommend follow-up with primary care after discharge Further care might be either a 3 month follow-up CT or more aggressive PET CT, biopsy DVT prophylaxis - status post Covid 19 pneumonia Well continue Lovenox 30 mg twice a day CODE STATUS was discussed with patient. He would like DNR CODE STATUS
[2019-12-26] MEDS: guaiFENesin 100 MG/5 ML Soln 5 ML UD Cup PO PRN ×2 (16:18→22:11)
[2019-12-26] MEDS: Calcium Carbonate 500 MG Tab.Chew PO PRN (19:58)
[2019-12-26] MEDS: Simvastatin 40 MG Tab PO SCH (21:05)
[2019-12-26] MEDS: Metoprolol Succinate 50 MG Tab.ER PO SCH (21:05)
[2019-12-27] MEDS: Albuterol/Ipratropium 3.0-0.5 MG/3 ML Neb Soln NEB SCH ×3 (07:25→17:18)
[2019-12-27] MEDS: Budesonide 0.5 MG/2 ML Neb Susp NEB SCH ×2 (07:26→17:24)
[2019-12-27] MEDS: Enoxaparin 30 MG/0.3 ML Syringe SUBCUT SCH (08:22)
[2019-12-27] MEDS: Aspirin 81 MG Tab.EC PO SCH (08:22)
[2019-12-27] MEDS: Lutein/Minerals/Vit A,C & E Tab PO SCH (08:22)
[2019-12-27] MEDS: Lisinopril 10 MG Tab PO SCH (08:23)
[2019-12-27] MEDS: guaiFENesin 100 MG/5 ML Soln 5 ML UD Cup PO PRN (08:23)
--- NOTE | 2019-12-27 16:39 | CR ---
PROCEDURE INFORMATION: Exam: XR Chest, 1 View Exam date and time: 12/27/2019 4:28 PM Age: 84 years old Clinical indication: Shortness of breath; Additional info: SOB TECHNIQUE: Imaging protocol: XR of the chest Views: 1 view. COMPARISON: CT Chest wo Cont 11/30/2019 3:29 AM FINDINGS: Lungs: The chest is poorly expanded but the upper lungs are diffusely emphysematous. There is diffuse opacification in the mid right lateral chest with similar lesser opacification in lateral left upper chest. There is atelectasis at both lung bases with milder superimposed ground-glass opacification. Pleural space: Normal. Heart/Mediastinum: Normal heart and cardiomediastinal silhouette. Vasculature: Normal pulmonary vessel caliber. Normal aorta. Bones/joints: The bones are intact. IMPRESSION: Bilateral lung infiltrates seen in the setting of pulmonary emphysema and highly suspicious for diffuse pneumonia. Given the pattern of disease, viral etiologies should be strongly considered.
[2019-12-27] MEDS: Metoprolol Succinate 50 MG Tab.ER PO SCH (21:39)
[2019-12-27] MEDS: Simvastatin 40 MG Tab PO SCH (21:41)
[2019-12-28] MEDS: Albuterol/Ipratropium 3.0-0.5 MG/3 ML Neb Soln NEB SCH ×3 (07:05→18:20)
[2019-12-28] MEDS: Budesonide 0.5 MG/2 ML Neb Susp NEB SCH ×2 (07:05→18:24)
[2019-12-28] MEDS: Levofloxacin 500 MG Tab PO SCH (09:37)
[2019-12-28] MEDS: Lutein/Minerals/Vit A,C & E Tab PO SCH (09:37)
[2019-12-28] MEDS: Aspirin 81 MG Tab.EC PO SCH (09:37)
[2019-12-28] MEDS: Enoxaparin 30 MG/0.3 ML Syringe SUBCUT SCH (09:45)
[2019-12-28] MEDS: Lisinopril 10 MG Tab PO SCH (09:47)
--- NOTE | 2019-12-28 10:07 | PCM.PN ---
- General Info Date of Service: 12/28/19 Subjective Update: Patient started desaturating. Oxygen saturation was going down to the 80s Has some shortness of breath. Denies chest pain. - Review of Systems General: Reports: Weakness, Malaise HEENT: Reports: No Symptoms Pulmonary: Reports: Shortness of Breath Cardiovascular: Reports: No Symptoms Gastrointestinal: Reports: No Symptoms Musculoskeletal: Reports: No Symptoms - Patient Data Vitals - Most Recent: Last Vital Signs Temp 37.0 C 12/28/19 07:46 Pulse 84 12/28/19 07:46 Resp 22 H 12/28/19 07:46 BP 115/45 L 12/28/19 09:47 Pulse Ox 91 L 12/28/19 07:46 Weight - Most Recent: 57.334 kg I&O - Last 24 Hours: Intake & Output 12/27/19 12/28/19 12/28/19 22:59 06:59 14:59 Intake Total 120 420 Balance 120 420 Lab Results Last 24 Hours: Laboratory Results - last 24 hr 12/27/19 Range/Units 17:35 COVID-19 (LAUREN) Negative (NEGATIVE) Med Orders - Current: Current Medications Acetaminophen (Tylenol) 650 mg PO Q4H PRN PRN Reason: Pain (Mild 1-3)/fever Last Admin: 12/26/19 22:11 Dose: 650 mg Documented by: Albuterol/Ipratropium (Duoneb 3.0-0.5 Mg/3 Ml) 3 ml NEB TID@0700,1300,1800 [facility] Last Admin: 12/28/19 07:05 Dose: 3 ml Documented by: Albuterol/Ipratropium (Duoneb 3.0-0.5 Mg/3 Ml) 3 ml NEB Q2H PRN PRN Reason: sob Last Admin: 12/26/19 04:23 Dose: 3 ml Documented by: Aspirin (Halfprin) 81 mg PO DAILY [facility] Last Admin: 12/28/19 09:37 Dose: 81 mg Documented by: Budesonide (Pulmicort) 0.5 mg NEB BIDRT [facility] Last Admin: 12/28/19 07:05 Dose: 0.5 mg Documented by: Calcium Carbonate/Glycine (Tums) 500 mg PO Q4H PRN PRN Reason: Heartburn Last Admin: 12/26/19 19:58 Dose: 500 mg Documented by: Docusate Sodium (Colace) 100 mg PO BID PRN PRN Reason: Constipation Last Admin: 12/25/19 09:08 Dose: 100 mg Documented by: Enoxaparin Sodium (Lovenox) 40 mg SUBCUT DAILY [facility] Last Admin: 12/28/19 09:45 Dose: 40 mg Documented by: Guaifenesin (Robitussin) 100 mg PO Q6H PRN PRN Reason: Cough Last Admin: 12/27/19 08:23 Dose: 100 mg Documented by: Levofloxacin (Levaquin) 500 mg PO Q24H [facility] Last Admin: 12/28/19 09:37 Dose: 500 mg Documented by: Lisinopril (Prinivil) 10 mg PO DAILY [facility] Last Admin: 12/28/19 09:47 Dose: Not Given Documented by: Metoprolol Succinate (Toprol Xl) 50 mg PO BEDTIME [facility] Last Admin: 12/27/19 21:39 Dose: 50 mg Documented by: Multivitamins/Minerals (I-Evonne) 1 each PO DAILY [facility] Last Admin: 12/28/19 09:37 Dose: 1 each Documented by: Ondansetron HCl (Zofran Odt) 4 mg PO Q6H PRN PRN Reason: nausea, able to take PO Simvastatin (Zocor) 40 mg PO BEDTIME [facility] Last Admin: 12/27/19 21:41 Dose: 40 mg Documented by: Discontinued Medications Albuterol (Proventil Hfa) gm INH Q6HR PRN PRN Reason: Shortness of Breath Dextrose/Water (Dextrose 50% In Water) 25 ml IVPUSH ASDIRECTED PRN PRN Reason: Hypoglycemia BS<70 Enoxaparin Sodium (Lovenox) 30 mg SUBCUT Q12HR [facility] Last Admin: 12/27/19 08:22 Dose: Not Given Documented by: Heparin Sodium (Porcine) (Heparin Sodium) 5,000 units SUBCUT Q8HR [facility] Insulin Human Lispro (Humalog) 0 unit SUBCUT WITHMEALSANDBED [facility]; Protocol Sodium Chloride (Saline Flush) 10 ml FLUSH ASDIRECTED PRN PRN Reason: Keep Vein Open - Exam Quality Assessment: Supplemental Oxygen General: Alert, Oriented, Cooperative HEENT: Pupils Equal, Pupils Reactive, EOMI, Mucous Membr. Moist/[place] Lungs: Decreased Breath Sounds Cardiovascular: Regular Rate, Regular Rhythm GI/Abdominal Exam: Normal Bowel Sounds, Soft, Non-Tender, No Organomegaly, No Distention, No Abnormal Bruit, No Mass, Pelvis Stable Sepsis Event Note - Evaluation Sepsis Screening Result: No Definite Risk - Focused Exam Vital Signs: Vital Signs Temp Pulse Resp BP BP Pulse Ox Pulse Ox 12/28/19 09:47 115/45 L 12/28/19 07:46 37.0 C 84 22 H 111/43 L 91 L 12/28/19 07:06 80 90 L - Problem List Review Problem List Initiated/Reviewed/Updated: Yes - My Orders Last 24 Hours: My Active Orders 12/27/19 10:59 Code Status [Resuscitation Status] Routine 12/28/19 09:00 Enoxaparin [Lovenox] 40 mg SUBCUT DAILY levoFLOXacin [Levaquin] 500 mg PO Q24H - Plan Plan:: COVID 19 pneumonia Status post treatment with remdesivir, plasma resolved Acute hypoxemic respiratory failure due to COPD, Covid 19 pneumonia Well supplement oxygen as needed COPD Resolved acute exacerbation Use DuoNeb scheduled and as needed Use Pulmicort nebulizer twice a day Hypertension Treat with lisinopril, metoprolol Dyslipidemia Continue statin #. Possible healthcare associated pneumonia Patient is more short of breath now Needing more supplemental oxygen I obtained chest x-ray. Showed increased bilateral infiltrate. Unclear whether this is as a result of recent Covid 19 infection. Send sputum for Gram stain and cultures Start patient on oral levofloxacin On last CT there was a 2 x 1 cm scar versus nodule in the anterior inferior right middle lobe Recommend follow-up with primary care after discharge Further care might be either a 3 month follow-up CT or more aggressive PET CT, biopsy DVT prophylaxis - status post Covid 19 pneumonia Change Lovenox to 40 mg daily CODE STATUS was discussed with patient. He would like DNR CODE STATUS
[2019-12-28] MEDS: Metoprolol Succinate 50 MG Tab.ER PO SCH (21:36)
[2019-12-28] MEDS: Simvastatin 40 MG Tab PO SCH (21:36)
[2019-12-29] MEDS: Albuterol/Ipratropium 3.0-0.5 MG/3 ML Neb Soln NEB SCH ×3 (07:34→18:00)
[2019-12-29] MEDS: Budesonide 0.5 MG/2 ML Neb Susp NEB SCH ×2 (07:34→18:01)
[2019-12-29] MEDS: Lutein/Minerals/Vit A,C & E Tab PO SCH (08:12)
[2019-12-29] MEDS: guaiFENesin 100 MG/5 ML Soln 5 ML UD Cup PO PRN ×3 (08:12→20:28)
[2019-12-29] MEDS: Levofloxacin 500 MG Tab PO SCH (08:12)
[2019-12-29] MEDS: Aspirin 81 MG Tab.EC PO SCH (08:12)
[2019-12-29] MEDS: Enoxaparin 30 MG/0.3 ML Syringe SUBCUT SCH (08:13)
[2019-12-29] MEDS: Lisinopril 10 MG Tab PO SCH (10:04)
[2019-12-29] MEDS: Simvastatin 40 MG Tab PO SCH (20:23)
[2019-12-29] MEDS: Metoprolol Succinate 50 MG Tab.ER PO SCH (20:24)
[2019-12-30] MEDS: guaiFENesin 100 MG/5 ML Soln 5 ML UD Cup PO PRN ×3 (06:14→18:17)
[2019-12-30] MEDS: Budesonide 0.5 MG/2 ML Neb Susp NEB SCH ×2 (07:06→18:05)
[2019-12-30] MEDS: Albuterol/Ipratropium 3.0-0.5 MG/3 ML Neb Soln NEB SCH ×3 (07:06→18:05)
[2019-12-30] MEDS: Lisinopril 10 MG Tab PO SCH (09:32)
[2019-12-30] MEDS: Aspirin 81 MG Tab.EC PO SCH (09:32)
[2019-12-30] MEDS: Enoxaparin 40 MG/0.4 ML Syringe SUBCUT SCH (09:32)
[2019-12-30] MEDS: Lutein/Minerals/Vit A,C & E Tab PO SCH (09:32)
[2019-12-30] MEDS: Levofloxacin 500 MG Tab PO SCH (09:32)
[2019-12-30] MEDS: Metoprolol Succinate 50 MG Tab.ER PO SCH (20:19)
[2019-12-30] MEDS: Simvastatin 40 MG Tab PO SCH (20:19)
[2019-12-31] MEDS: guaiFENesin 100 MG/5 ML Soln 5 ML UD Cup PO PRN ×4 (00:09→20:19)
[2019-12-31] MEDS: Budesonide 0.5 MG/2 ML Neb Susp NEB SCH ×2 (07:10→17:39)
[2019-12-31] MEDS: Albuterol/Ipratropium 3.0-0.5 MG/3 ML Neb Soln NEB SCH ×3 (07:10→17:39)
[2019-12-31] MEDS: Enoxaparin 40 MG/0.4 ML Syringe SUBCUT SCH (08:19)
[2019-12-31] MEDS: Lisinopril 10 MG Tab PO SCH (08:19)
[2019-12-31] MEDS: Aspirin 81 MG Tab.EC PO SCH (08:20)
[2019-12-31] MEDS: Levofloxacin 500 MG Tab PO SCH (08:20)
[2019-12-31] MEDS: Lutein/Minerals/Vit A,C & E Tab PO SCH (08:20)
[2019-12-31] MEDS: Metoprolol Succinate 50 MG Tab.ER PO SCH (20:19)
[2019-12-31] MEDS: Simvastatin 40 MG Tab PO SCH (20:19)
[2020-01-01] MEDS: guaiFENesin 100 MG/5 ML Soln 5 ML UD Cup PO PRN ×4 (02:24→20:58)
[2020-01-01] MEDS: Budesonide 0.5 MG/2 ML Neb Susp NEB SCH ×2 (07:30→18:17)
[2020-01-01] MEDS: Albuterol/Ipratropium 3.0-0.5 MG/3 ML Neb Soln NEB SCH ×3 (07:30→18:09)
[2020-01-01] MEDS: Lutein/Minerals/Vit A,C & E Tab PO SCH (08:50)
[2020-01-01] MEDS: Levofloxacin 500 MG Tab PO SCH (08:50)
[2020-01-01] MEDS: Lisinopril 10 MG Tab PO SCH (08:50)
[2020-01-01] MEDS: Aspirin 81 MG Tab.EC PO SCH (08:51)
[2020-01-01] MEDS: Enoxaparin 40 MG/0.4 ML Syringe SUBCUT SCH (08:51)
[2020-01-01] MEDS: Calcium Carbonate 500 MG Tab.Chew PO PRN (18:26)
[2020-01-01] MEDS: Metoprolol Succinate 50 MG Tab.ER PO SCH (20:58)
[2020-01-01] MEDS: Simvastatin 40 MG Tab PO SCH (20:59)
[2020-01-02] MEDS: guaiFENesin 100 MG/5 ML Soln 5 ML UD Cup PO PRN ×4 (03:31→22:30)
[2020-01-02] MEDS: Albuterol/Ipratropium 3.0-0.5 MG/3 ML Neb Soln NEB SCH ×3 (07:31→18:18)
--- NOTE | 2020-01-02 09:13 | PCM.PN ---
- General Info Date of Service: 01/02/20 Subjective Update: No new complaint today The patient has been eating very poorly Appetite is suboptimal. No fever and no chills. Still needing significant oxygen supplementation - Review of Systems General: Reports: Weakness, Malaise Pulmonary: Reports: Shortness of Breath, Cough Cardiovascular: Reports: No Symptoms Gastrointestinal: Reports: No Symptoms Skin: Reports: No Symptoms - Patient Data Vitals - Most Recent: Last Vital Signs Temp 37.0 C 01/01/20 20:00 Pulse 76 01/02/20 07:00 Resp 20 01/01/20 20:00 BP 130/53 L 01/01/20 20:58 Pulse Ox 90 L 01/02/20 07:00 Weight - Most Recent: 56.971 kg I&O - Last 24 Hours: Intake & Output 01/01/20 01/02/20 01/02/20 22:59 06:59 14:59 Intake Total 275 300 Output Total 350 300 Balance -75 0 Med Orders - Current: Current Medications Acetaminophen (Tylenol) 650 mg PO Q4H PRN PRN Reason: Pain (Mild 1-3)/fever Last Admin: 12/26/19 22:11 Dose: 650 mg Documented by: Albuterol/Ipratropium (Duoneb 3.0-0.5 Mg/3 Ml) 3 ml NEB TID@0700,1300,1800 [facility] Last Admin: 01/02/20 07:31 Dose: 3 ml Documented by: Albuterol/Ipratropium (Duoneb 3.0-0.5 Mg/3 Ml) 3 ml NEB Q2H PRN PRN Reason: sob Last Admin: 12/26/19 04:23 Dose: 3 ml Documented by: Aspirin (Halfprin) 81 mg PO DAILY [facility] Last Admin: 01/01/20 08:51 Dose: 81 mg Documented by: Budesonide (Pulmicort) 0.5 mg NEB BIDRT [facility] Last Admin: 01/01/20 18:17 Dose: 0.5 mg Documented by: Calcium Carbonate/Glycine (Tums) 500 mg PO Q4H PRN PRN Reason: Heartburn Last Admin: 01/01/20 18:26 Dose: 500 mg Documented by: Docusate Sodium (Colace) 100 mg PO BID PRN PRN Reason: Constipation Last Admin: 12/25/19 09:08 Dose: 100 mg Documented by: Enoxaparin Sodium (Lovenox) 40 mg SUBCUT DAILY [facility] Last Admin: 01/01/20 08:51 Dose: 40 mg Documented by: Guaifenesin (Robitussin) 100 mg PO Q6H PRN PRN Reason: Cough Last Admin: 01/02/20 03:31 Dose: 100 mg Documented by: Levofloxacin (Levaquin) 500 mg PO Q24H [facility] Last Admin: 01/01/20 08:50 Dose: 500 mg Documented by: Lisinopril (Prinivil) 10 mg PO DAILY [facility] Last Admin: 01/01/20 08:50 Dose: 10 mg Documented by: Metoprolol Succinate (Toprol Xl) 50 mg PO BEDTIME [facility] Last Admin: 01/01/20 20:58 Dose: 50 mg Documented by: Multivitamins/Minerals (I-Evnone) 1 each PO DAILY [facility] Last Admin: 01/01/20 08:50 Dose: 1 each Documented by: Ondansetron HCl (Zofran Odt) 4 mg PO Q6H PRN PRN Reason: nausea, able to take PO Simvastatin (Zocor) 40 mg PO BEDTIME [facility] Last Admin: 01/01/20 20:59 Dose: 40 mg Documented by: Discontinued Medications Albuterol (Proventil Hfa) gm INH Q6HR PRN PRN Reason: Shortness of Breath Dextrose/Water (Dextrose 50% In Water) 25 ml IVPUSH ASDIRECTED PRN PRN Reason: Hypoglycemia BS<70 Enoxaparin Sodium (Lovenox) 30 mg SUBCUT Q12HR [facility] Last Admin: 12/27/19 08:22 Dose: Not Given Documented by: Enoxaparin Sodium (Lovenox) 40 mg SUBCUT DAILY [facility] Last Admin: 12/29/19 08:13 Dose: 40 mg Documented by: Heparin Sodium (Porcine) (Heparin Sodium) 5,000 units SUBCUT Q8HR [facility] Insulin Human Lispro (Humalog) 0 unit SUBCUT WITHMEALSANDBED [facility]; Protocol Sodium Chloride (Saline Flush) 10 ml FLUSH ASDIRECTED PRN PRN Reason: Keep Vein Open - Exam Quality Assessment: Supplemental Oxygen General: Alert, Oriented, Cooperative HEENT: Pupils Equal, Pupils Reactive, EOMI, Mucous Membr. Moist/[place] Neck: Supple Lungs: Clear to Auscultation, Normal Respiratory Effort Cardiovascular: Regular Rate, Regular Rhythm Extremities: Normal Inspection, Normal Range of Motion, Non-Tender, No Pedal Edema, Normal Capillary Refill Sepsis Event Note - Evaluation Sepsis Screening Result: No Definite Risk - Focused Exam Vital Signs: Vital Signs Pulse Pulse Ox 01/02/20 07:00 76 90 L - Problem List Review Problem List Initiated/Reviewed/Updated: Yes - Plan Plan:: COVID 19 pneumonia Status post treatment with remdesivir, plasma resolved Acute hypoxemic respiratory failure due to COPD, Covid 19 pneumonia Patient continued to require supplemental oxygen Patient will likely require supplemental oxygen upon discharge Will plan for walking desaturation study in the next 1-2 days COPD Resolved acute exacerbation Use DuoNeb scheduled and as needed Use Pulmicort nebulizer twice a day Hypertension Treat with lisinopril, metoprolol Dyslipidemia Continue statin #. Possible healthcare associated pneumonia Patient seemed to be doing much better Started on levofloxacin 12/28/19. We'll treat for [address] there was a 2 x 1 cm scar versus nodule in the anterior inferior right middle lobe Recommend follow-up with primary care after discharge Further care might be either a 3 month follow-up CT or more aggressive PET CT, biopsy DVT prophylaxis - status post Covid 19 pneumonia Change Lovenox to 40 mg daily CODE STATUS was discussed with patient. He would like DNR CODE STATUS
[2020-01-02] MEDS: Levofloxacin 500 MG Tab PO SCH (09:19)
[2020-01-02] MEDS: Lutein/Minerals/Vit A,C & E Tab PO SCH (09:19)
[2020-01-02] MEDS: Aspirin 81 MG Tab.EC PO SCH (09:19)
[2020-01-02] MEDS: Enoxaparin 40 MG/0.4 ML Syringe SUBCUT SCH (09:20)
[2020-01-02] MEDS: Budesonide 0.5 MG/2 ML Neb Susp NEB SCH ×2 (10:21→18:18)
[2020-01-02] MEDS: Lisinopril 10 MG Tab PO SCH (12:25)
[2020-01-02] MEDS: Calcium Carbonate 500 MG Tab.Chew PO PRN (18:52)
[2020-01-02] MEDS: Simvastatin 40 MG Tab PO SCH (20:33)
[2020-01-02] MEDS: Metoprolol Succinate 50 MG Tab.ER PO SCH (20:39)
[2020-01-03] MEDS: guaiFENesin 100 MG/5 ML Soln 5 ML UD Cup PO PRN ×2 (04:44→10:44)
[2020-01-03] MEDS: Budesonide 0.5 MG/2 ML Neb Susp NEB SCH ×2 (07:21→17:35)
[2020-01-03] MEDS: Albuterol/Ipratropium 3.0-0.5 MG/3 ML Neb Soln NEB SCH ×3 (07:21→17:34)
[2020-01-03 08:25] VITALS: PULSE 81
[2020-01-03] MEDS: Aspirin 81 MG Tab.EC PO SCH (09:09)
[2020-01-03] MEDS: Levofloxacin 500 MG Tab PO SCH (09:09)
[2020-01-03] MEDS: Lisinopril 10 MG Tab PO SCH (09:09)
[2020-01-03] MEDS: Lutein/Minerals/Vit A,C & E Tab PO SCH (09:09)
[2020-01-03] MEDS: Enoxaparin 40 MG/0.4 ML Syringe SUBCUT SCH (09:09)
[2020-01-03 09:10] VITALS: BP 118/55
--- NOTE | 2020-01-03 11:22 | PN ---
DATE: 01/03/2020 SUBJECTIVE: The patient continues to do well and he feels that he is ready to go home. He got done with his 1 week course of Levaquin. The patient denies any worsening of shortness of breath. Denies any fever, chills, abdominal pain, or any other complaints. OBJECTIVE: Vital Signs: Blood pressure is 118/51, pulse 81, respirations 20, temperature of 97.9, saturation is 93% on 2 L per nasal cannula. Heart: Regular rate and rhythm. Normal S1 and S2. No gallops. No rubs. Lungs: Have diminished breath sounds in both bases, but no significant crackles. No wheezing. Abdomen: Soft, nontender. Bowel sounds positive. Extremities: Negative for any significant pedal edema. No calf tenderness. MEDICATIONS: Reviewed. PLAN: We will continue with his present management and anticipate discharge today, and prior to discharge, we are going to do a walking desaturation for the patient. The patient is going to follow up with his primary care provider in 1 week and the patient also needs a followup CAT scan of the chest because of the nodule that was noted on the anterior inferior right middle lobe. He needs a CT of the chest in 3 months, followup, and this will be done as an outpatient with his primary care provider. [facility] /[id number]
[2020-01-03] MEDS: Calcium Carbonate 500 MG Tab.Chew PO PRN (13:26)
--- NOTE | 2020-01-03 14:04 | DISCH ---
FINAL DIAGNOSES: 1. General debility and deconditioning. 2. Chronic obstructive pulmonary disease exacerbation. 3. History of COVID-19 infection. 4. Hypertension. 5. Hypoxemia. 6. Dyslipidemia. 7. Lung nodule on CAT scan versus scar. BRIEF HISTORY OF PRESENT ILLNESS: See H and P and the patient was admitted to [place] for COVID-19 pneumonia and COPD exacerbation and hypoxic respiratory failure. The patient improved with his pneumonia, but the patient continued to require oxygen and was feeling weak, so he was admitted here to [facility] for further PT and OT. During the swing bed hospitalization, the patient again developed some shortness of breath and cough, for which he was started on oral Levaquin for 7 days and he did well and the rest of the hospital staywas unremarkable. The patient is still needing oxygen though to keep his saturation above 90 and so he will be discharged on oxygen and also to have a walking desaturation study prior to discharge. CONDITION ON DISCHARGE: Improved. He will also be referred to home health for longterm for medication regimen and teaching and physical therapy for home exercise program and occupational therapy for home safety evaluation and home health aide for bathing. The patient is going to follow up with his primary care provider Jennifer Latham in 1 week for recheck and also he needs a followup CAT scan of the chest because of the questionable nodule versus a scar and this will be done in 3 months as an outpatient. The patient will also be continued on his home medication. [facility] /[id number] MARISELA
--- NOTE | 2020-01-03 15:11 | DISCH ---
ADDENDUM: The patient had a walking desaturation and resting room air saturation is at 87%. Lowest saturation while walking at 85% on 4 L oxygen. Recovery saturation at 92% on 2 L. We are ordering 2 L oxygen at rest and ordering [address] [facility] /[id number]
== END 2020-01-03 15:40 | disposition home or self-care (01) | DRG 947 ==
LOC: DL.MS 13:26
PROVIDERS: ADMIT Internal Medicine; ATTEND Internal Medicine
DX: R53.81 Other malaise (principal); J18.9 Pneumonia, unspecified organism; J96.01 Acute respiratory failure with hypoxia; J44.1 Chronic obstructive pulmonary disease with (acute) exacerbation; J44.0 Chronic obstructive pulmonary disease with (acute) lower respiratory infection; Z09 Encounter for follow-up examination after completed treatment for conditions other than malignant neoplasm; Z86.19 Personal history of other infectious and parasitic diseases; Z20.828 Contact with and (suspected) exposure to other viral communicable diseases; I10 Essential (primary) hypertension; E78.5 Hyperlipidemia, unspecified; E78.00 Pure hypercholesterolemia, unspecified; I25.10 Atherosclerotic heart disease of native coronary artery without angina pectoris; Z66 Do not resuscitate; R91.1 Solitary pulmonary nodule; Z88.0 Allergy status to penicillin; Z88.8 Allergy status to other drugs, medicaments and biological substances; Z79.82 Long term (current) use of aspirin; Z79.899 Other long term (current) drug therapy; I25.2 Old myocardial infarction; Z90.49 Acquired absence of other specified parts of digestive tract; Z87.891 Personal history of nicotine dependence
CPT/HCPCS: 36415; 71045; 80048; 82962; 85025; 94618; 94640; 97110-GP; 97116-GP; 97162-GP; 97530-GO; 97535-GO; A9270-GY; J1650; J7620-GY; U0002

== ENCOUNTER 2024-09-26 02:03 | Emergency (ER) | payer MEDICARE ==
[2024-09-26 02:29] LABS: HEMATOCRIT 46.6 % (40.0-54.0); HEMOGLOBIN 15.5 g/dL (14.0-18.0); MEAN CORPUSCULAR HEMOGLOBIN 32.3 pg (27.0-34.0); MEAN CORPUSCULAR HGB CONC 33.3 g/dL (33.0-35.0); MEAN CORPUSCULAR VOLUME 97.1 fL (80-100); PLATELET COUNT,PLT 298 10^3/uL (150-450); WHITE BLOOD CELL COUNT,WBC 10.7 10^3/uL (5.0-10.0)
[2024-09-26 02:30] LABS: LYMPHOCYTES PERCENT AUTO 34.6 % (20.5-50.1); NEUTROPHILS PERCENT AUTO 51.2 % (42.2-75.2)
[2024-09-26 02:31] LABS: BASOPHILS PERCENT AUTO 0.4 % (0.0-1.0); EOSINOPHILS PERCENT AUTO 2.4 % (1.0-3.0); MONOCYTES PERCENT AUTO 11.4 % (2-8)
[2024-09-26 02:48] LABS: A/G RATIO 1.1; ALANINE AMINOTRANSFERASE,ALT 21 U/L (16-63); ALBUMIN 3.7 g/dL (3.4-5.0); ALKALINE PHOSPHATASE 98 U/L (46-116); ANION GAP 10.9 mEq/L (7-13); ASPARTATE AMNIOTRANSFERASE,AST 14 U/L (15-37); BILIRUBIN TOTAL 0.3 mg/dL (0.2-1.0); BLOOD UREA NITROGEN,BUN 11 mg/dL (7-18); BUN/CREATININE RATIO 9.2 (No establ ref range); CARBON DIOXIDE,CO2 31 mmol/L (21-32); CHLORIDE,CL 107 mmol/L (98-107); GLUCOSE RANDOM 92 mg/dL (70-99); POTASSIUM,K 3.9 mmol/L (3.5-5.1); PROTEIN TOTAL,TP 7.2 g/dL (6.4-8.2); SODIUM,NA 145 mmol/L (136-145)
[2024-09-26 02:49] LABS: ESTIMATED GFR 59 mL/min (>=60)
[2024-09-26 02:58] LABS: EOSINOPHILS PERCENT MAN 2 % (1-3); LYMPHOCYTES % ATYPICAL MANUAL 4 %; LYMPHOCYTES PERCENT MAN 25 % (20-50); MONOCYTES PERCENT MAN 12 % (2-8); SEG NEUTROPHILS PERCENT MAN 57 % (42-75)
[2024-09-26 03:17] VITALS: BP 156/97; PULSE 67
== END 2024-09-26 03:58 | disposition home or self-care (01) ==
LOC: DL.ED 02:03
DX: R07.2 Precordial pain (principal); I10 Essential (primary) hypertension; E78.00 Pure hypercholesterolemia, unspecified; Z88.0 Allergy status to penicillin; Z88.8 Allergy status to other drugs, medicaments and biological substances; Z79.82 Long term (current) use of aspirin; Z79.899 Other long term (current) drug therapy; Z90.49 Acquired absence of other specified parts of digestive tract
CPT/HCPCS: 36415; 71045; 80053; 84484; 85025; 93005; 93010; 99284; 99285